=== PATIENT | male | born 1985 | race American Indian/Alaskan Native ===

== ENCOUNTER 2017-10-31 13:26 | Emergency (ER) | payer OTHER ==
[2017-10-31 13:35] VITALS: BP 159/91
[2017-10-31] MEDS ORDERED: MOTRIN PO ONE (14:37)
--- NOTE | 2017-10-31 17:22 | Emergency Department Report ---
ED Fall HPI - General Chief Complaint: Back Pain/Injury Stated Complaint: FALL Time Seen by Provider: 10/31/17 14:24 Source: patient Mode of arrival: Wheelchair - History of Present Illness Initial Comments: Patient is a 32-year-old black male who is complaining of pain after fall. Patient states he was in the store and the floor was wet and he fell. Patient fell on the right side. Patient is complaining of right-sided neck pain posterior right shoulder pain as well as pain in the arm. Patient states pain is 8 out of 10 in severity. Patient denies any loss of consciousness. - Related Data Previous Rx's Medication Instructions Recorded Last Taken Type Ibuprofen [Motrin] 800 mg PO Q8HR PRN #20 tablet 10/31/17 Unknown Rx methOCARBAMOL [Robaxin TAB] 500 mg PO Q6H PRN #15 tablet 10/31/17 Unknown Rx traMADol [Ultram] 50 mg PO Q6HR PRN #12 tablet 10/31/17 Unknown Rx Allergies Allergy/AdvReac Type Severity Reaction Status Date / Time No Known Allergies Allergy Unverified 10/31/17 13:35 ED Review of Systems ROS: Stated complaint: FALL Other details as noted in HPI Comment: All other systems reviewed and negative ED Past Medical Hx - Past Medical History Previous Medical History?: No - Surgical History Past Surgical History?: No - Social History Smoking Status: Never Smoker Substance Use Type: None - Medications Home Medications: Home Medications Medication Instructions Recorded Confirmed Last Taken Type Ibuprofen [Motrin] 800 mg PO Q8HR PRN #20 tablet 10/31/17 Unknown Rx methOCARBAMOL [Robaxin TAB] 500 mg PO Q6H PRN #15 tablet 10/31/17 Unknown Rx traMADol [Ultram] 50 mg PO Q6HR PRN #12 tablet 10/31/17 Unknown Rx ED Physical Exam - General Limitations: No Limitations General appearance: alert, in no apparent distress - Head Head exam: Present: atraumatic, normocephalic - Eye Eye exam: Present: normal appearance - ENT ENT exam: Present: mucous membranes moist - Neck Neck exam: Present: normal inspection - Respiratory Respiratory exam: Present: normal lung sounds bilaterally. Absent: respiratory distress - Cardiovascular Cardiovascular Exam: Present: regular rate, normal rhythm. Absent: systolic murmur, diastolic murmur, rubs, gallop - GI/Abdominal GI/Abdominal exam: Present: soft, normal bowel sounds - Rectal Rectal exam: Present: deferred - Extremities Exam Extremities exam: Present: normal inspection, other (he states he has pain in the right forearm posterior right shoulder as well as the right side of his neck. Patient also having some minor discomfort in the lower back.) - Back Exam Back exam: Present: normal inspection - Neurological Exam Neurological exam: Present: alert, oriented X3 - Psychiatric Psychiatric exam: Present: normal affect, normal mood - Skin Skin exam: Present: warm, dry, intact, normal color. Absent: rash ED Course Vital Signs 10/31/17 10/31/17 13:31 14:52 Temperature 99.0 F Pulse Rate 94 H Respiratory 16 18 Rate Blood Pressure 159/91 O2 Sat by Pulse 99 Oximetry ED Medical Decision Making - Radiology Data interpreted by me: X-rays of the right forearm and right shoulder C-spine and lumbar spine are within normal limits. Critical care attestation.: If time is entered above; I have spent that time in minutes in the direct care of this critically ill patient, excluding procedure time. ED Disposition Clinical Impression: Musculoskeletal pain Disposition: DC-01 TO HOME OR SELFCARE Is pt being admited?: No Does the pt Need Aspirin: No Condition: Stable Instructions: Musculoskeletal Pain (ED), RICE Therapy (ED) Referrals: JOS GIPSON MD [Staff Physician] - as needed
--- NOTE | 2017-10-31 17:41 | XRay Report ---
FINAL REPORT PROCEDURE: XR SHOULDER 2+V RT TECHNIQUE: Right shoulder radiographs including AP views in internal and external rotation and transscapular view. HISTORY: Fall injury. COMPARISON: No prior studies are available for comparison. FINDINGS: Fracture (s) and/or Dislocation(s): None . Joint space(s): Normal . Soft tissues: Normal . Bone mineralization: Normal . Foreign bodies: None . IMPRESSION: No radiographic evidence of acute abnormality.
--- NOTE | 2017-10-31 18:06 | XRay Report ---
FINAL REPORT PROCEDURE: XR FOREARM RT TECHNIQUE: RIGHT forearm radiographs, AP and lateral views. HISTORY: Fall injury. COMPARISON: No prior studies are available for comparison. FINDINGS: Fracture (s) and/or Dislocation(s): None . Joint space(s): Normal . Soft tissues: Normal . Bone mineralization: Normal . Foreign bodies: None . IMPRESSION: No radiographic evidence of displaced fracture.
--- NOTE | 2017-10-31 18:09 | XRay Report ---
FINAL REPORT PROCEDURE: XR SPINE CERVICAL 3+V TECHNIQUE: Cervical spine radiographs, AP, lateral, swimmer's and open-mouth odontoid views. HISTORY: Fall injury. COMPARISON: No prior studies are available for comparison. FINDINGS: Prevertebral soft tissues: Normal . Alignment: Normal . Vertebral body heights/Disk spaces: Normal . Fracture(s): None . Facets: Normal . Bone mineralization: Normal . IMPRESSION: No radiographic evidence of acute abnormality.
--- NOTE | 2017-10-31 18:13 | XRay Report ---
FINAL REPORT PROCEDURE: XR SPINE LUMBOSACRAL 2-3V TECHNIQUE: Lumbar spine radiographs, including AP, lateral, and lumbosacral spot views. HISTORY: Fall injury. COMPARISON: No prior studies are available for comparison. FINDINGS: Alignment: Normal. Vertebral body heights/Disk spaces: Normal. Fracture(s): None. Facets: Normal. Bone mineralization: Normal. IMPRESSION: No radiographic evidence of acute abnormality.
== END 2017-10-31 17:37 | disposition home or self-care (01) ==
LOC: ED 13:26
DX: M54.2 Cervicalgia (principal); M25.511 Pain in right shoulder; W01.0XXA Fall on same level from slipping, tripping and stumbling without subsequent striking against object, initial encounter; Y93.89 Activity, other specified; Y92.512 Supermarket, store or market as the place of occurrence of the external cause; Y99.8 Other external cause status
CPT/HCPCS: 72040; 72100; 99283

== ENCOUNTER 2018-04-24 15:52 | Inpatient (IN) | payer OTHER ==
[2018-04-24] MEDS ORDERED: NACL 0.9% 500 ML 500 ML IV ONE (16:04)
[2018-04-24 16:47] LABS: Basophils % (Auto) 0.8 % (0.0-1.8); Hematocrit 45.6 % (35.5-45.6); Hemoglobin 15.5 gm/dl (11.8-15.2); Lymphocytes # (Auto) 0.6 K/mm3 (1.2-5.4); Lymphocytes % (Auto) 16.5 % (13.4-35.0); Mean Corpuscular HGB Conc 34 % (32-34); Mean Corpuscular Volume 82 fl (84-94); Monocytes # (Auto) 0.4 K/mm3 (0.0-0.8); Monocytes % (Auto) 10.4 % (0.0-7.3); Platelet Count 114 K/mm3 (140-440); Red Blood Count 5.54 M/mm3 (3.65-5.03); Red Cell Distribution Width 12.4 % (13.2-15.2)
[2018-04-24] MEDS ORDERED: TYLENOL ONE (16:49)
[2018-04-24 17:00] LABS: INR 1.01 (0.87-1.13)
[2018-04-24 17:02] LABS: Alanine Aminotransferase 60 units/L (7-56); Albumin 4.1 g/dL (3.9-5); BUN/Creatinine Ratio 8; Blood Urea Nitrogen 11 mg/dL (9-20); Calcium 8.5 mg/dL (8.4-10.2); Hemolysis Index 2
[2018-04-24] MEDS ORDERED: ZOSYN/NS 4.5GM/100ML 4.5 GM/100 ML VIAL IV ONE (17:02)
[2018-04-24] MEDS ORDERED: NACL 0.9% 1000 ML 1,000 ML IV ONE ×3 (17:03→20:27)
[2018-04-24] MEDS ORDERED: ZOFRAN IV ONE ×2 (17:03→20:08)
--- NOTE | 2018-04-24 17:08 | Emergency Department Report ---
ED N/V/D HPI - General Chief complaint: Nausea/Vomiting/Diarrhea Stated complaint: CHEST PAIN/POSS VIRUS Time Seen by Provider: 04/24/18 17:02 Source: patient Mode of arrival: Ambulatory Limitations: No Limitations - History of Present Illness Initial comments: Patient is a 32-year-old male that presents emergency room with complaints of nausea vomiting and chest pain and gastric pain that started 7 days ago. Patient states has not held anything down for 7 days. She states 2 days ago started having diarrhea. Patient states the chest pain is intermittent and only happens when he is vomiting. She states the epigastric pain is only when he is vomiting. Patient states he feels like the pain starts in his epigastric region radiating up into his chest while vomiting. Patient states he is not having any chest pain or abdominal pain at this time. Patient denies blood in his vomitus and blood in his stool. Patient states he is a normal color liquid diarrhea. Patient denies mucous in his diarrhea. Patient states he is having a fever for 7 days. Patient states he is taking medications to breakdown but is not responding. She denies headache. Patient denies blurry vision. Patient denies dizziness. Patient states he feels weak for the last 3 days. . MD complaint: nausea, vomiting, diarrhea, abdominal pain, other -: Sudden Description of Vomiting: watery Description of Diarrhea: water Associated Abdominal Pain: Yes Location: epigastric Radiation: chest Pain Scale: 0 Quality: stabbing Consistency: constant Improves with: rest Worsens with: eating, vomiting Associated Symptoms: chest pain, fever/chills, loss of appetite, malaise, nausea/vomiting, weakness. denies: myalgias, cough, diaphoresis, headaches, rash, dysuria, shortness of breath, syncope - Related Data Previous Rx's Medication Instructions Recorded Last Taken Type Ibuprofen [Motrin] 800 mg PO Q8HR PRN #20 tablet 10/31/17 Unknown Rx methOCARBAMOL [Robaxin TAB] 500 mg PO Q6H PRN #15 tablet 10/31/17 Unknown Rx traMADol [Ultram] 50 mg PO Q6HR PRN #12 tablet 10/31/17 Unknown Rx Allergies Allergy/AdvReac Type Severity Reaction Status Date / Time No Known Allergies Allergy Verified 04/24/18 16:01 ED Review of Systems ROS: Stated complaint: CHEST PAIN/POSS VIRUS Other details as noted in HPI Constitutional: chills, fever, malaise, weakness Eyes: denies: eye pain, eye discharge, vision change ENT: denies: ear pain, throat pain Respiratory: denies: cough, shortness of breath, wheezing Cardiovascular: chest pain. denies: palpitations Endocrine: no symptoms reported Gastrointestinal: abdominal pain, nausea, vomiting, diarrhea Genitourinary: denies: urgency, dysuria Musculoskeletal: denies: back pain, joint swelling, arthralgia Skin: denies: rash, lesions Neurological: denies: headache, weakness, paresthesias Psychiatric: denies: anxiety, depression Hematological/Lymphatic: denies: easy bleeding, easy bruising ED Past Medical Hx - Past Medical History Previous Medical History?: No - Surgical History Past Surgical History?: No - Family History Family history: no significant - Social History Smoking Status: Never Smoker Substance Use Type: None - Medications Home Medications: Home Medications Medication Instructions Recorded Confirmed Last Taken Type Ibuprofen [Motrin] 800 mg PO Q8HR PRN #20 tablet 10/31/17 Unknown Rx methOCARBAMOL [Robaxin TAB] 500 mg PO Q6H PRN #15 tablet 10/31/17 Unknown Rx traMADol [Ultram] 50 mg PO Q6HR PRN #12 tablet 10/31/17 Unknown Rx ED Physical Exam - General Limitations: No Limitations General appearance: alert, in no apparent distress - Head Head exam: Present: atraumatic, normocephalic - Eye Eye exam: Present: normal appearance - ENT ENT exam: Present: mucous membranes dry - Neck Neck exam: Present: normal inspection - Respiratory Respiratory exam: Present: normal lung sounds bilaterally. Absent: respiratory distress - Cardiovascular Cardiovascular Exam: Present: regular rate, normal rhythm. Absent: systolic murmur, diastolic murmur, rubs, gallop - GI/Abdominal GI/Abdominal exam: Present: soft, normal bowel sounds. Absent: distended, tenderness, guarding, rebound - Rectal Rectal exam: Present: deferred - Extremities Exam Extremities exam: Present: normal inspection - Back Exam Back exam: Present: normal inspection - Neurological Exam Neurological exam: Present: alert, oriented X3 - Psychiatric Psychiatric exam: Present: normal affect, normal mood - Skin Skin exam: Present: warm, dry, intact, normal color. Absent: rash ED Course Vital Signs 04/24/18 04/24/18 04/24/18 16:01 17:00 18:37 Temperature 102.9 F H 102.5 F H Pulse Rate 128 H 112 H 105 H Respiratory 18 12 22 Rate Blood Pressure 158/92 Blood Pressure 130/93 131/90 [Left] O2 Sat by Pulse 96 98 97 Oximetry 04/24/18 04/24/18 04/24/18 19:13 20:52 22:12 Temperature 97.8 F Pulse Rate 106 H 91 H 89 Respiratory 16 16 18 Rate Blood Pressure Blood Pressure 139/86 131/79 137/75 [Left] O2 Sat by Pulse 98 97 97 Oximetry - Reevaluation(s) Reevaluation #1: Discussed all results with patient. Patient's fever finally decreased. Patient still complaining of headache. Patient still unable to tolerate by mouth challenge. Patient has had multiple dose of antibiotics and still having nausea and vomiting. 04/24/18 20:25 Patient to be admitted to the hospitalist service . patient agrees with plan of care and admission. 04/24/18 20:25 - Consultations Consultation #1: Hospitalist consult for admission. Hospitalist to admit patient and assume care of patient. 04/24/18 20:30 ED Medical Decision Making - Lab Data Result diagrams: 04/24/18 16:19 04/24/18 16:19 - EKG Data -: EKG Interpreted by Ms EKG shows normal: sinus rhythm, axis, intervals, QRS complexes, ST-T waves Rate: tachycardia - Radiology Data Radiology results: report reviewed Negative CT abdomen. - Medical Decision Making Patient is a 32-year-old male that presents emergency room with 7 days of nausea vomiting abdominal pain. Patient also complained of abdominal pain rating to his chest. Patient denied chest pain upon arrival. Patient states chest pains only with vomiting. Patient to be admitted to the hospitalist service for further resolution treatment for intractable nausea and vomiting in fever. Patient's findings consistent with gastroenteritis of viral origin. Patient failed by mouth challenge. Patient multiple doses of antipyretics and antiemetics. Patient's had 7 days of fever and his fever is difficult control with medications. Patient given multiple doses of Zofran and still continued to have nausea vomiting. Patient given multiple boluses. . - Differential Diagnosis gastroenteritis. Dehydration. Nausea/vomiting. Abdominal pain. CP Critical Care Time: Yes Critical care attestation.: If time is entered above; I have spent that time in minutes in the direct care of this critically ill patient, excluding procedure time. Critical Care Time: 45 minutes ED Disposition Clinical Impression: Dehydration, Gastroenteritis Abdominal pain Qualifiers: Abdominal location: epigastric Qualified Code(s): R10.13 - Epigastric pain Intractable nausea and vomiting Qualifiers: Vomiting type: unspecified Qualified Code(s): R11.2 - Nausea with vomiting, unspecified Fever Qualifiers: Fever type: unspecified Qualified Code(s): R50.9 - Fever, unspecified Chest pain Qualifiers: Chest pain type: unspecified Qualified Code(s): R07.9 - Chest pain, unspecified Disposition: DC-09 OP ADMIT IP TO THIS HOSP Is pt being admited?: Yes Does the pt Need Aspirin: No Condition: Critical Time of Disposition: 20:31
--- NOTE | 2018-04-24 17:24 | XRay Report ---
FINAL REPORT PROCEDURE: XR CHEST ROUTINE 2V TECHNIQUE: PA and lateral chest radiographs were obtained. CPT 92860 HISTORY: possible Sepsis COMPARISON: No prior studies are available for comparison. FINDINGS: Heart: Normal. Mediastinum/Vessels: Normal. Lungs/Pleural space: No infiltrate, effusion, or pneumothorax. Bony thorax: No acute osseous abnormality. Other: IMPRESSION: No pulmonary infiltrates are identified.
[2018-04-24] MEDS ORDERED: IBUPROFEN PO ONE (19:03)
--- NOTE | 2018-04-24 20:01 | Cat Scan Report ---
FINAL REPORT PROCEDURE: CT abdomen and pelvis without contrast. TECHNIQUE: Computerized axial tomography of the abdomen and pelvis was performed without intravenous contrast. This study is performed without intravascular contrast material and its sensitivity for ab dominal and pelvic pathology, including neoplasms, inflammation, abscess, free fluid, thrombosis, art erial dissection and infarction, is reduced compared with a contrast enhanced study. HISTORY: Epigastric abdominal pain, nausea and vomiting, fever. COMPARISON: No prior studies are available for comparison. FINDINGS: The lung bases are clear. There are no pleural effusions. The heart size is normal. The liver, pancre as and spleen are grossly normal. The gallbladder is present. There is no biliary dilatation. The adr enal glands are not enlarged. Both kidneys appear normal in size and configuration. The abdominal aor ta has a normal caliber. There is no retroperitoneal adenopathy. The unopacified gastrointestinal tra ct is unremarkable. A normal appendix is visible. The bladder, seminal vesicles and prostate appear n ormal. The regional skeleton appears intact. IMPRESSION: Normal unenhanced studies of the abdomen and pelvis.
[2018-04-25] MEDS: NACL 0.9% 1000 ML 1,000 ML IV SCH ×2 (06:02→21:56)
--- NOTE | 2018-04-25 07:39 | Progress Note ---
Assessment and Plan Assessment and plan: 32-year-old man who presents with CAD emergency room with nausea vomiting, chest pain and epigastric pain 7 days. He has been having diarrhea now for 2 days. Chest x-ray no acute findings CT abdomen and pelvis no acute findings Problems Fever Intractable nausea vomiting Chest pain Abdominal pain SIRS without organ dysfunction Plan obtain rapid flu and stool studies IVF fup blood cx -obtain HIV testing, risk factors are MSM dvt ppx early ambulation History Interval history: Review of systems Constitutional: had fever, tmax 102.5, no malaise, no joint pains CVS: No chest pain, no orthopnea, no dyspnea on exertion, no pedal edema GI: No abdominal pain, diarrhea is resolving, no vomiting, no constipation Respiratory: No shortness of breath, no wheezing, no coughing Hospitalist Physical - Physical exam Narrative exam: General.: Appears well, no distress, nontoxic HEENT: Moist mucous membranes, extraocular muscles intact, no lymphadenopathy Neck: supple Cardiac: S1-S2 heard Lungs: clear to auscultation bilaterally Abdomen: soft , nontender, nondistended, bowel sounds positive Extremities: no edema clubbing or cyanosis Skin: no rash or lesions Neurologic: no gross focal deficits Psych: calm, and cooperative - Constitutional Vitals: Temp Pulse Resp BP Pulse Ox 99.0 F 89 20 110/72 98 04/25/18 05:32 04/25/18 05:32 04/25/18 05:32 04/25/18 05:32 04/25/18 05:32 Results - Labs CBC & Chem 7: 04/24/18 16:19 04/24/18 16:19 Labs: Laboratory Last Values WBC 3.4 K/mm3 (4.5-11.0) L 04/24/18 16:19 RBC 5.54 M/mm3 (3.65-5.03) H 04/24/18 16:19 Hgb 15.5 gm/dl (11.8-15.2) H 04/24/18 16:19 Hct 45.6 % (35.5-45.6) 04/24/18 16:19 MCV 82 fl (84-94) L 04/24/18 16:19 MCH 28 pg (28-32) 04/24/18 16:19 MCHC 34 % (32-34) 04/24/18 16:19 RDW 12.4 % (13.2-15.2) L 04/24/18 16:19 Plt Count 114 K/mm3 (140-440) L 04/24/18 16:19 Lymph % (Auto) 16.5 % (13.4-35.0) 04/24/18 16:19 [place] % (Auto) 10.4 % (0.0-7.3) H 04/24/18 16:19 Eos % (Auto) 0.0 % (0.0-4.3) 04/24/18 16:19 Baso % (Auto) 0.8 % (0.0-1.8) 04/24/18 16:19 Lymph # 0.6 K/mm3 (1.2-5.4) L 04/24/18 16:19 [place] # 0.4 K/mm3 (0.0-0.8) 04/24/18 16:19 Eos # 0.0 K/mm3 (0.0-0.4) 04/24/18 16:19 Baso # 0.0 K/mm3 (0.0-0.1) 04/24/18 16:19 Seg Neutrophils % 72.3 % (40.0-70.0) H 04/24/18 16:19 Seg Neutrophils # 2.4 K/mm3 (1.8-7.7) 04/24/18 16:19 PT 13.7 Sec. (12.2-14.9) 04/24/18 16:19 INR 1.01 (0.87-1.13) 04/24/18 16:19 VBG pH 7.417 (7.320-7.420) 04/24/18 16:19 Sodium 133 mmol/L (137-145) L 04/24/18 16:19 Potassium 3.8 mmol/L (3.6-5.0) 04/24/18 16:19 Chloride 99.3 mmol/L (98-107) 04/24/18 16:19 Carbon Dioxide 20 mmol/L (22-30) L 04/24/18 16:19 Anion Gap 18 mmol/L 04/24/18 16:19 BUN 11 mg/dL (9-20) 04/24/18 16:19 Creatinine 1.4 mg/dL (0.8-1.5) 04/24/18 16:19 Estimated GFR > 60 ml/min 04/24/18 16:19 BUN/Creatinine Ratio 8 % 04/24/18 16:19 Glucose 125 mg/dL (75-100) H 04/24/18 16:19 Lactic Acid 1.20 mmol/L (0.7-2.0) 04/24/18 19:08 Calcium 8.5 mg/dL (8.4-10.2) 04/24/18 16:19 Total Bilirubin 0.40 mg/dL (0.1-1.2) 04/24/18 16:19 AST 51 units/L (5-40) H 04/24/18 16:19 ALT 60 units/L (7-56) H 04/24/18 16:19 Alkaline Phosphatase 51 units/L (35-129) 04/24/18 16:19 Total Protein 7.3 g/dL (6.3-8.2) 04/24/18 16:19 Albumin 4.1 g/dL (3.9-5) 04/24/18 16:19 Albumin/Globulin Ratio 1.3 % 04/24/18 16:19 Lipase 73 units/L (13-60) H 04/24/18 22:37
[2018-04-25] MEDS: ZOFRAN IV PRN ×4 (09:21→21:57)
[2018-04-25] MEDS: HEPARIN SUB-Q SCH ×2 (09:21→21:57)
[2018-04-25] MEDS: TYLENOL PO PRN ×3 (09:33→21:58)
--- NOTE | 2018-04-25 09:55 | History and Physical Report ---
CHIEF COMPLAINT: Nausea, vomiting, and diarrhea. HISTORY OF PRESENT ILLNESS: The patient is a 32-year-old male who said he has been having nausea, vomiting, and diarrhea with some epigastric abdominal pain going on for about 1 week. The patient stated the symptoms started with nausea, vomiting, and pain going on for about 7 days and then 2 days prior to presentation, the patient started having diarrhea. The patient denies history of shortness of breath and stated that he has also been having fever going on for about 1 week. There is no history of headache, no history of dizziness, and no history of cough. PAST MEDICAL HISTORY: Unremarkable. PAST SURGICAL HISTORY: Unremarkable. FAMILY HISTORY: Noncontributory. SOCIAL HISTORY: The patient does not smoke, does not drink alcohol, and does not use illicit drugs. MEDICATIONS: The patient is on Motrin 800 mg every 8 hours as needed for pain and Robaxin 500 mg every 6 hours as needed for muscle cramps, also the patient used to be on tramadol 50 mg every 6 hours as needed for pain. ALLERGIES: There are no known drug allergies. REVIEW OF SYSTEMS: CONSTITUTIONAL: There is fever. No chills, no diaphoresis. HEENT: There is no headache or sore throat. CARDIOVASCULAR SYSTEM: There is chest pain, but no orthopnea. RESPIRATORY SYSTEM: There is no shortness of breath or cough. GASTROINTESTINAL SYSTEM: Nausea, vomiting, abdominal pain, and diarrhea present. There is no constipation. NEUROLOGICAL SYSTEM: There is no numbness, no dizziness, no altered mental status. MUSCULOSKELETAL SYSTEM: There is no joint pain or swelling. DERMATOLOGICAL SYSTEM: There is no skin rash or itching. GENITOURINARY SYSTEM: There is no dysuria, hematuria, or flank pain. Rest of system review is normal. PHYSICAL EXAMINATION: GENERAL: At the time of exam, the patient was found to be alert and oriented x 3 and not in acute distress. VITAL SIGNS: At the initial time of presentation showed temperature of 102.9 degree Fahrenheit, pulse of 128, respirations 18, blood pressure 158/92, O2 sat of 96% on room air. HEENT: Shows pupils to be equal, round, reactive to light and accommodating. Extraocular muscles are intact. NECK: Neck is supple with no JVD or carotid bruits. CARDIOVASCULAR SYSTEM: Show normal first and second heart sounds with no gallops or murmurs. RESPIRATORY SYSTEM: Showed good air entry on both sides of the lung with no abnormal breath sounds. GASTROINTESTINAL SYSTEM: Show abdomen to be full, soft, nontender with no organomegaly or rigidity. NEUROLOGIC: No focal deficit. MUSCULOSKELETAL SYSTEM: Shows no joint swelling or tenderness. DERMATOLOGICAL SYSTEM: Show no skin rash. GENITOURINARY SYSTEM: Show no costovertebral angle tenderness. PERTINENT LABORATORY AND IMAGING STUDIES: The patient had a CT of the abdomen and pelvis without contrast done that was unremarkable. Also, the patient had chest x-ray done that shows no pulmonary infiltrate. The patient's lab results show CBC with low white count of 3400, elevated hemoglobin of 15.5, normal hematocrit with CBC differential showing elevated monocyte count of 10,400 with CBC differential showing elevated segmented neutrophil count of 72.3%. The patient's chemistry showed low sodium of 133, low CO2 of 20, and liver transaminases show high AST of 51 with high ALT of 60, and elevated lipase level of 73. The patient's urinalysis is still pending and influenza antigen A and B test is still pending. DIAGNOSIS: Acute gastroenteritis. PLAN OF ACTION: 1. The patient will be placed on observation in the medical/surgical [place]. 2. The patient will be on IV normal saline running at about 125 mL an hour. 3. The patient will be on p.r.n. medications like Tylenol 650 mg by mouth every 4 hours for fever and headache and will be on IV Zofran 4 mg every 8 hours for nausea and vomiting. 4. The patient will have a stat cardiac enzymes checked for troponin, total CK, and CK-MB because of complain of epigastric pain extending to the chest area. 5. The patient's diet will be regular diet. JOB# [id number] OCN/NTS
[2018-04-25 15:03] LABS: Bilirubin,Urine NEG (Negative); Blood,Urine NEG (Negative); Color,Urine Yellow (Yellow); Mucus,Urine FEW /HPF; Protein,Urine <15 mg/dL mg/dL (Negative)
[2018-04-25 15:29] LABS: Creatine Kinase MB 4.6 ng/mL (0.0-4.0)
[2018-04-25] MEDS: IBUPROFEN PO PRN (19:20)
[2018-04-25] MEDS ORDERED: MORPHINE IV ONE ×2 (21:03→22:00)
[2018-04-26] MEDS: ZOFRAN IV PRN ×2 (02:27→09:11)
[2018-04-26] MEDS: IBUPROFEN PO PRN ×2 (02:27→09:59)
[2018-04-26] MEDS: HEPARIN SUB-Q SCH (09:58)
--- NOTE | 2018-04-26 11:28 | Consultation ---
History of Present Illness - Reason for Consult Consult date: 04/26/18 HIV Requesting physician: PRUDENCE DORAN - History of Present Illness This patient is a 32-year-old male with no significant past medical history , that presents to the ED on 04/24/17 with complaints of nausea, vomiting and gastric pain that started 7 days ago. Patient further states that he has been having diarrhea, that is liquid in consistency for the past 2 days. He also has intermittent chest and epigastric pain while vomiting, but symptoms do not occur simultaneously. On admission WBC 3.4, Creatinine 1.4, CK 1752, Lactic acid 1.20, AST 51, ALT 60, Temperature 102.9,, HR 128, BP 158/92. U/A is not consistent with UTI, HIV P24 Antigen was reactive, Chest xray showed no inf iltrates, Abdomen and pelvis CT showed normal unenhanced studies. Patient states that he engages in MSM behavior, last encounter early March of this year. He denies tobacco or illegal drug use. States that he drinks alcohol occasionally. Review of Systems: General: +fevers, chills, now resolved HEENT: no new visual disturbance Respiratory: No cough, sputum, hemoptysis or shortness of breath Cardiovascular: No chest pain, syncope Gastrointestinal: No nausea, vomiting. + diarrhea, now resolved Genitourinary: No dysuria or hematuria Musculoskeletal: No new or worsening neck pain or back pain Neurologic: No headaches, seizures Hematologic: No easy bruising or bleeding Endocrine: No night sweats or acute weight loss Skin: negative for rash, jaundice Psychiatric: No suicidal or homicidal ideation Medications and Allergies Allergies Allergy/AdvReac Type Severity Reaction Status Date / Time No Known Allergies Allergy Verified 04/24/18 16:01 Home Medications Medication Instructions Recorded Confirmed Last Taken Type Ibuprofen [Motrin 800 MG tab] 800 mg PO Q8HR PRN #20 tablet 10/31/17 Unknown Rx methOCARBAMOL [Robaxin TAB] 500 mg PO Q6H PRN #15 tablet 10/31/17 Unknown Rx Active Meds: Active Medications Acetaminophen (Tylenol) 650 mg PO Q4H PRN PRN Reason: Fever >101 Last Admin: 04/25/18 21:58 Dose: 650 mg Documented by: Heparin Sodium (Porcine) (Heparin) 5,000 unit SUB-Q Q12HR [facility] Last Admin: 04/26/18 09:58 Dose: 5,000 unit Documented by: Sodium Chloride (Nacl 0.9% 1000 Ml) 1,000 mls @ 125 mls/hr IV DIRECT EZ Last Admin: 04/25/18 21:56 Dose: 125 mls/hr Documented by: Ibuprofen (Motrin) 800 mg PO Q8H PRN PRN Reason: Pain, Mild (1-3) Last Admin: 04/26/18 09:59 Dose: 800 mg Documented by: Ondansetron HCl (Zofran) 6 mg IV Q4H PRN PRN Reason: Nausea And Vomiting Last Admin: 04/26/18 09:11 Dose: 6 mg Documented by: Physical Examination - Physical Exam Narrative exam: Constitutional: Alert, cooperative. No acute distress Head, Ears, Nose: Normocephalic, atraumatic. External ears, nose normal Eyes: Conjunctivae/corneas clear. No icterus. No ptosis. Neck: Supple, no meningeal signs Oral: dentition good, no thrush Cardiovascular: S1, S2 normal. Respiratory: Good air entry, clear to auscultation bilaterally GI: Soft, non-tender; bowel sounds normal. No peritoneal signs Musculoskeletal: No pedal edema, no cyanosis. Skin: No rash or abscess. Hem/Lymphatic: No palpable cervical or supraclavicular nodes. No lymphangitis Psych: Mood ok. Affect normal Neurological: Awake, alert, oriented. - Constitutional Vitals: Vital Signs Temp Pulse Resp BP Pulse Ox 97.9 F 82 20 117/77 96 04/26/18 05:26 04/26/18 05:26 04/26/18 05:26 04/26/18 05:26 04/26/18 05:26 Temperature -Last 24 Hours Temperature 97.9 F Temperature 98.0 F Temperature 100.6 F Temperature 99.7 F Results - Labs CBC & Chem 7: 04/24/18 16:19 04/24/18 16:19 Labs: Abnormal lab results 04/25/18 Range/Units 14:47 Total Creatine Kinase 1752 H (55-170) units/L CK-MB (CK-2) 4.6 H (0.0-4.0) ng/mL Assessment and Plan Cultures: 04/25/2018 Urine: no growth to date 04/24/2018 Blood: no growth to date A/P: 32-year-old male with no significant past medical history , that presents to the ED on 04/24/17 with complaints of nausea, vomiting and gastric pain that started 7 days ago. Patient further states that he has been having diarrhea, that is liquid in consistency for the past 2 days, admitted with. 1.Fevers: etiology unclear. Chest xray shows no consolidation. Blood cultures and urine cultures show no growth to date. U/A in not consistent with UTI. Denies recent diarrhea. Possible viral etiology, +/-HIV, +/- mononucleosis, +/- influenza.. HIV 1 &2 antibody rapid was nonreactive, however HIV P24 antigen is reactive. Can be false positive. However he admits to recent MSM behavior. Will order HIV 4th generation antigen/antibody for confirmation, CD4 count, Viral load and HIV genotype stat. Plan -Order HIV 4th generation antigen/antibody -CD4, Viral load and HIV genotype -Rapid flu -stool cx, ova & parasite, c-diff and stool wbc ordered -if discharged will follow up with ID clinic 05-13-18 for results of tests -discussed plan with patient and card given d/w Dr. Jorge Avitia, [facility] M: [phone] O:[phone]
[2018-04-26 12:39] VITALS: BP 131/80
--- NOTE | 2018-04-26 13:13 | Progress Note ---
Assessment and Plan Assessment and plan: 32-year-old man who presents with CAD emergency room with nausea vomiting, chest pain and epigastric pain 7 days. He has been having diarrhea now for 2 days. Chest x-ray no acute findings CT abdomen and pelvis no acute findings Problems Fever Intractable nausea vomiting Chest pain Abdominal pain SIRS without organ dysfunction HIV p24 ag positive Plan obtain rapid flu and stool studies IVF fup blood cx -HIV p24 ag positive, ID consult, obtain Genotype, confirmation, Viral load, risk factors are MSM dvt ppx early ambulation History Interval history: Review of systems Constitutional: had fever, tmax 102.5, no malaise, no joint pains CVS: No chest pain, no orthopnea, no dyspnea on exertion, no pedal edema GI: No abdominal pain, diarrhea is resolving, no vomiting, no constipation Respiratory: No shortness of breath, no wheezing, no coughing Hospitalist Physical - Physical exam Narrative exam: General.: Appears well, no distress, nontoxic HEENT: Moist mucous membranes, extraocular muscles intact, no lymphadenopathy Neck: supple Cardiac: S1-S2 heard Lungs: clear to auscultation bilaterally Abdomen: soft , nontender, nondistended, bowel sounds positive Extremities: no edema clubbing or cyanosis Skin: no rash or lesions Neurologic: no gross focal deficits Psych: calm, and cooperative - Constitutional Vitals: Temp Pulse Resp BP Pulse Ox 98.7 F 83 18 131/80 95 04/26/18 11:32 04/26/18 11:32 04/26/18 11:32 04/26/18 11:32 04/26/18 11:32 Results - Labs CBC & Chem 7: 04/24/18 16:19 04/24/18 16:19 Labs: Laboratory Last Values WBC 3.4 K/mm3 (4.5-11.0) L 04/24/18 16:19 RBC 5.54 M/mm3 (3.65-5.03) H 04/24/18 16:19 Hgb 15.5 gm/dl (11.8-15.2) H 04/24/18 16:19 Hct 45.6 % (35.5-45.6) 04/24/18 16:19 MCV 82 fl (84-94) L 04/24/18 16:19 MCH 28 pg (28-32) 04/24/18 16:19 MCHC 34 % (32-34) 04/24/18 16:19 RDW 12.4 % (13.2-15.2) L 04/24/18 16:19 Plt Count 114 K/mm3 (140-440) L 04/24/18 16:19 Lymph % (Auto) 16.5 % (13.4-35.0) 04/24/18 16:19 Blanco % (Auto) 10.4 % (0.0-7.3) H 04/24/18 16:19 Eos % (Auto) 0.0 % (0.0-4.3) 04/24/18 16:19 Baso % (Auto) 0.8 % (0.0-1.8) 04/24/18 16:19 Lymph # 0.6 K/mm3 (1.2-5.4) L 04/24/18 16:19 Blanco # 0.4 K/mm3 (0.0-0.8) 04/24/18 16:19 Eos # 0.0 K/mm3 (0.0-0.4) 04/24/18 16:19 Baso # 0.0 K/mm3 (0.0-0.1) 04/24/18 16:19 Seg Neutrophils % 72.3 % (40.0-70.0) H 04/24/18 16:19 Seg Neutrophils # 2.4 K/mm3 (1.8-7.7) 04/24/18 16:19 PT 13.7 Sec. (12.2-14.9) 04/24/18 16:19 INR 1.01 (0.87-1.13) 04/24/18 16:19 VBG pH 7.417 (7.320-7.420) 04/24/18 16:19 Sodium 133 mmol/L (137-145) L 04/24/18 16:19 Potassium 3.8 mmol/L (3.6-5.0) 04/24/18 16:19 Chloride 99.3 mmol/L (98-107) 04/24/18 16:19 Carbon Dioxide 20 mmol/L (22-30) L 04/24/18 16:19 Anion Gap 18 mmol/L 04/24/18 16:19 BUN 11 mg/dL (9-20) 04/24/18 16:19 Creatinine 1.4 mg/dL (0.8-1.5) 04/24/18 16:19 Estimated GFR > 60 ml/min 04/24/18 16:19 BUN/Creatinine Ratio 8 % 04/24/18 16:19 Glucose 125 mg/dL (75-100) H 04/24/18 16:19 Lactic Acid 1.20 mmol/L (0.7-2.0) 04/24/18 19:08 Calcium 8.5 mg/dL (8.4-10.2) 04/24/18 16:19 Total Bilirubin 0.40 mg/dL (0.1-1.2) 04/24/18 16:19 AST 51 units/L (5-40) H 04/24/18 16:19 ALT 60 units/L (7-56) H 04/24/18 16:19 Alkaline Phosphatase 51 units/L (35-129) 04/24/18 16:19 Total Creatine Kinase 1752 units/L (55-170) H 04/25/18 14:47 CK-MB (CK-2) 4.6 ng/mL (0.0-4.0) H 04/25/18 14:47 CK-MB (CK-2) Rel Index 0.2 (0-4) 04/25/18 14:47 Troponin T < 0.010 ng/mL (0.00-0.029) 04/25/18 14:47 Total Protein 7.3 g/dL (6.3-8.2) 04/24/18 16:19 Albumin 4.1 g/dL (3.9-5) 04/24/18 16:19 Albumin/Globulin Ratio 1.3 % 04/24/18 16:19 Lipase 73 units/L (13-60) H 04/24/18 22:37 Urine Color Yellow (Yellow) 04/25/18 14:55 Urine Turbidity Clear (Clear) 04/25/18 14:55 Urine pH 5.0 (5.0-7.0) 04/25/18 14:55 Ur Specific Jones 1.018 (1.003-1.030) 04/25/18 14:55 Urine Protein <15 mg/dl mg/dL (Negative) 04/25/18 14:55 Urine Glucose (UA) Neg mg/dL (Negative) 04/25/18 14:55 Urine Ketones Neg mg/dL (Negative) 04/25/18 14:55 Urine Blood Neg (Negative) 04/25/18 14:55 Urine Nitrite Neg (Negative) 04/25/18 14:55 Urine Bilirubin Neg (Negative) 04/25/18 14:55 Urine Urobilinogen 4.0 mg/dL (<2.0) 04/25/18 14:55 Ur Leukocyte Esterase Neg (Negative) 04/25/18 14:55 Urine WBC (Auto) 2.0 /HPF (0.0-6.0) 04/25/18 14:55 Urine RBC (Auto) 1.0 /HPF (0.0-6.0) 04/25/18 14:55 Urine Mucus Few /HPF 04/25/18 14:55 HIV 1&2 Antibody Rapid Non react (Non React) 04/26/18 00:23 HIV P24 Antigen React (Non React) 04/26/18 00:23
--- NOTE | 2018-04-26 14:11 | Discharge Summary ---
Providers - Providers Date of Admission: 04/24/18 22:08 Attending physician: PRUDENCE DORAN MD 04/26/18 10:58 Consult to Physician [CONS] Routine Comment: Consulting Provider: PADMINI HOLLAND Physician Instructions: Reason For Exam: HIV p24 ag positive, new Primary care physician: DENNIS ADRIAN Hospitalization Condition: Good Pertinent studies: Chest x-ray no acute findings CT abdomen and pelvis no acute findings Hospital course: 32-year-old man who presents with CAD emergency room with nausea vomiting, chest pain and epigastric pain 7 days. He had diarrhea for 2 days. -he was diagnosed with acute viral gastroenteritis - he received IVF and anti- emetics, and he improved - chest pain was likely due to intractable vomiting, resolved with anti emetics - HIV p24 ag was pos, likely false positive, confirmatory test ordered, he will fup in ID clinic for his results Problems Fever Acute viral gastroenteritis dehydration Intractable nausea vomiting Chest pain- due to oesophageal irritation from vomiting Abdominal pain SIRS without organ dysfunction HIV p24 ag positive Disposition: TO HOME OR SELFCARE Time spent for discharge: 33 mins Core Measure Documentation - Palliative Care Palliative Care/ Comfort Measures: Not Applicable - Core Measures Any of the following diagnoses?: none Exam - Constitutional Vitals: Temp Pulse Resp BP Pulse Ox 98.7 F 83 18 131/80 95 04/26/18 11:32 04/26/18 11:32 04/26/18 11:32 04/26/18 11:32 04/26/18 11:32 General appearance: Present: no acute distress, well-nourished - EENT Eyes: Present: PERRL ENT: hearing intact, clear oral mucosa - Neck Neck: Present: supple, normal ROM - Respiratory Respiratory effort: normal Respiratory: bilateral: CTA - Cardiovascular Heart Sounds: Present: S1 & S2. Absent: rub, click - Extremities Extremities: pulses symmetrical, No edema Peripheral Pulses: within normal limits - Abdominal General gastrointestinal: Present: soft, non-tender, non-distended, normal bowel sounds Male genitourinary: Present: normal - Integumentary Integumentary: Present: clear, warm, dry - Musculoskeletal Musculoskeletal: gait normal, strength equal bilaterally - Psychiatric Psychiatric: appropriate mood/affect, intact judgment & insight - Neurologic Neurologic: CNII-XII intact, moves all extremities Plan
[2018-04-28 20:54] LABS: HIV-1 RNA QN PCR 6.75 Log cps/mL
[2018-04-29 16:05] LABS: CD4/CD8 Ratio 1.04 (0.86-5.00)
== END 2018-04-26 17:00 | disposition home or self-care (01) | DRG 392 ==
LOC: ED 15:52 → 3A 22:08
PROVIDERS: ADMIT Internal Medicine; ATTEND Internal Medicine
DX: A08.39 Other viral enteritis (principal); R65.10 Systemic inflammatory response syndrome (SIRS) of non-infectious origin without acute organ dysfunction; E86.0 Dehydration; K20.9 Esophagitis, unspecified; I25.10 Atherosclerotic heart disease of native coronary artery without angina pectoris; Z72.89 Other problems related to lifestyle; Z79.899 Other long term (current) drug therapy
CPT/HCPCS: 36415; 71046; 74176; 80053; 81001; 82024; 82140; 82550; 82553; 82805; 83690; 84484; 85025; 85610; 87040; 87086; 87536; 87806; 87901; 93005; 93010; G0378; J1644; J2270; J2405; J2543; J7030; J7040

== ENCOUNTER 2018-04-26 19:59 | Emergency (ER) | payer SELFPAY ==
[2018-04-26] MEDS ORDERED: ZOFRAN ODT PO ONE (20:38)
[2018-04-26] MEDS ORDERED: ZOFRAN ODT ONE (20:39)
[2018-04-27] MEDS ORDERED: NACL 0.9% 1000 ML 1,000 ML IV ONE (06:16)
[2018-04-27] MEDS ORDERED: LEVAQUIN PO ONE (06:20)
[2018-04-27] MEDS ORDERED: TYLENOL PO ONE (06:23)
--- NOTE | 2018-04-27 06:30 | Emergency Department Report ---
ED Abdominal Pain HPI - General Chief Complaint: Chest Pain Stated Complaint: EMESIS/CP/DIZZY Time Seen by Provider: 04/27/18 06:09 Source: patient Mode of arrival: Ambulatory Limitations: No Limitations - History of Present Illness Initial Comments: Mr. Flynn is a fairly healthy 31-year-old male who has been ill for the last week. He was recently discharged yesterday for fever nausea vomiting diarrhea. He felt better after supportive therapy. After a short hospital observation stay, he asked to go home. Once he went back home, the symptoms returned. He is able to tolerate water. However he still has nausea and diarrhea. He also has chest pain associated with vomiting. According to electronic medical record, diagnosis acute gastroenteritis, CT abdomen and pelvis without acute process. He has generalized nondescript abdominal discomfort. He is concerned that something in his room is making him sick. Severity scale (0 -10): 8 - Related Data Previous Rx's Medication Instructions Recorded Last Taken Type Ibuprofen [Motrin 800 MG tab] 800 mg PO Q8HR PRN #20 tablet 10/31/17 Unknown Rx methOCARBAMOL [Robaxin TAB] 500 mg PO Q6H PRN #15 tablet 10/31/17 Unknown Rx Ciprofloxacin HCl [Ciprofloxacin 500 mg PO BID 3 Days #6 tablet 04/27/18 Unknown Rx TAB] Promethazine [Phenergan TAB] 25 mg PO Q6HR PRN #20 tab 04/27/18 Unknown Rx Allergies Allergy/AdvReac Type Severity Reaction Status Date / Time No Known Allergies Allergy Verified 04/24/18 16:01 ED Review of Systems ROS: Stated complaint: EMESIS/CP/DIZZY Other details as noted in HPI Comment: All other systems reviewed and negative Constitutional: fever, malaise Gastrointestinal: abdominal pain, nausea, vomiting, diarrhea ED Past Medical Hx - Past Medical History Previous Medical History?: No - Surgical History Past Surgical History?: No - Social History Smoking Status: Never Smoker Substance Use Type: Alcohol - Medications Home Medications: Home Medications Medication Instructions Recorded Confirmed Last Taken Type Ibuprofen [Motrin 800 MG tab] 800 mg PO Q8HR PRN #20 tablet 10/31/17 Unknown Rx methOCARBAMOL [Robaxin TAB] 500 mg PO Q6H PRN #15 tablet 10/31/17 Unknown Rx Ciprofloxacin HCl [Ciprofloxacin 500 mg PO BID 3 Days #6 tablet 04/27/18 Unknown Rx TAB] Promethazine [Phenergan TAB] 25 mg PO Q6HR PRN #20 tab 04/27/18 Unknown Rx ED Physical Exam - General Limitations: No Limitations General appearance: alert, in no apparent distress, other (drinking water from water bottle appears nontoxic) - Head Head exam: Present: atraumatic, normocephalic - Eye Eye exam: Present: normal appearance - ENT ENT exam: Present: mucous membranes moist - Neck Neck exam: Present: normal inspection, full ROM. Absent: tenderness, meningismus - Respiratory Respiratory exam: Present: normal lung sounds bilaterally. Absent: respiratory distress, wheezes, rales, rhonchi - Cardiovascular Cardiovascular Exam: Present: regular rate, normal rhythm, normal heart sounds. Absent: systolic murmur, diastolic murmur, rubs, gallop - GI/Abdominal GI/Abdominal exam: Present: soft, normal bowel sounds. Absent: distended, tenderness, guarding, rebound - Rectal Rectal exam: Present: deferred - Extremities Exam Extremities exam: Present: normal inspection - Back Exam Back exam: Present: normal inspection - Neurological Exam Neurological exam: Present: alert, oriented X3 - Psychiatric Psychiatric exam: Present: normal affect, normal mood - Skin Skin exam: Present: warm, dry, intact, normal color. Absent: rash ED Course Vital Signs 04/26/18 04/27/18 04/27/18 20:24 03:17 03:33 Temperature 100.0 F H 100.1 F H Pulse Rate 110 H 108 H Respiratory 18 20 18 Rate Blood Pressure 146/90 Blood Pressure 147/87 [Left] O2 Sat by Pulse 96 98 98 Oximetry 04/27/18 04/27/18 04/27/18 06:46 06:48 06:49 Temperature 99.6 F Pulse Rate 94 H Respiratory 20 Rate Blood Pressure 132/90 Blood Pressure [Left] O2 Sat by Pulse 97 96 100 Oximetry 04/27/18 04/27/18 04/27/18 06:50 06:52 06:54 Temperature Pulse Rate Respiratory Rate Blood Pressure 132/90 132/90 132/90 Blood Pressure [Left] O2 Sat by Pulse 97 96 96 Oximetry 04/27/18 04/27/18 04/27/18 06:56 06:58 07:00 Temperature Pulse Rate Respiratory Rate Blood Pressure 132/90 132/90 132/90 Blood Pressure [Left] O2 Sat by Pulse 96 95 98 Oximetry 04/27/18 04/27/18 04/27/18 07:02 07:04 07:06 Temperature Pulse Rate Respiratory Rate Blood Pressure 149/85 149/85 149/85 Blood Pressure [Left] O2 Sat by Pulse 97 95 96 Oximetry 04/27/18 04/27/18 04/27/18 07:08 07:10 07:12 Temperature Pulse Rate Respiratory Rate Blood Pressure 149/85 149/85 149/85 Blood Pressure [Left] O2 Sat by Pulse 92 94 96 Oximetry 04/27/18 04/27/18 04/27/18 07:14 07:16 07:18 Temperature Pulse Rate Respiratory Rate Blood Pressure 149/85 149/85 149/85 Blood Pressure [Left] O2 Sat by Pulse 98 95 96 Oximetry 04/27/18 04/27/18 04/27/18 07:20 07:22 07:24 Temperature Pulse Rate Respiratory Rate Blood Pressure 149/85 149/85 149/85 Blood Pressure [Left] O2 Sat by Pulse 99 95 98 Oximetry 04/27/18 04/27/18 07:26 07:28 Temperature Pulse Rate Respiratory Rate Blood Pressure 149/85 149/85 Blood Pressure [Left] O2 Sat by Pulse 98 99 Oximetry ED Medical Decision Making - Lab Data Result diagrams: 04/27/18 06:42 04/27/18 06:42 Laboratory Last Values WBC 2.4 K/mm3 (4.5-11.0) L 04/27/18 06:42 RBC 4.90 M/mm3 (3.65-5.03) 04/27/18 06:42 Hgb 13.5 gm/dl (11.8-15.2) 04/27/18 06:42 Hct 40.5 % (35.5-45.6) 04/27/18 06:42 MCV 83 fl (84-94) L 04/27/18 06:42 MCH 28 pg (28-32) 04/27/18 06:42 MCHC 33 % (32-34) 04/27/18 06:42 RDW 12.5 % (13.2-15.2) L 04/27/18 06:42 Plt Count 99 K/mm3 (140-440) L 04/27/18 06:42 Sodium 136 mmol/L (137-145) L 04/27/18 06:42 Potassium 5.2 mmol/L (3.6-5.0) H D 04/27/18 06:42 Chloride 101.8 mmol/L (98-107) 04/27/18 06:42 Carbon Dioxide 19 mmol/L (22-30) L 04/27/18 06:42 Anion Gap 20 mmol/L 04/27/18 06:42 BUN 9 mg/dL (9-20) 04/27/18 06:42 Creatinine 1.0 mg/dL (0.8-1.5) 04/27/18 06:42 Estimated GFR > 60 ml/min 04/27/18 06:42 BUN/Creatinine Ratio 9 % 04/27/18 06:42 Glucose 102 mg/dL (75-100) H 04/27/18 06:42 Calcium 8.0 mg/dL (8.4-10.2) L 04/27/18 06:42 Total Bilirubin 0.80 mg/dL (0.1-1.2) 04/27/18 06:42 Direct Bilirubin < 0.2 mg/dL (0-0.2) 04/27/18 06:42 Indirect Bilirubin 0.6 mg/dL 04/27/18 06:42 AST 90 units/L (5-40) H 04/27/18 06:42 ALT 61 units/L (7-56) H 04/27/18 06:42 Alkaline Phosphatase 43 units/L (35-129) 04/27/18 06:42 Total Protein 6.7 g/dL (6.3-8.2) 04/27/18 06:42 Albumin 3.6 g/dL (3.9-5) L 04/27/18 06:42 Albumin/Globulin Ratio 1.2 % 04/27/18 06:42 Lipase 93 units/L (13-60) H 04/27/18 06:42 Laboratory Results - last 24 hr 04/27/18 04/27/18 06:42 06:42 WBC 2.4 L RBC 4.90 Hgb 13.5 Hct 40.5 MCV 83 L MCH 28 MCHC 33 RDW 12.5 L Plt Count 99 L Sodium 136 L Potassium 5.2 H D Chloride 101.8 Carbon Dioxide 19 L Anion Gap 20 BUN 9 Creatinine 1.0 Estimated GFR > 60 BUN/Creatinine Ratio 9 Glucose 102 H Calcium 8.0 L Total Bilirubin 0.80 Direct Bilirubin < 0.2 Indirect Bilirubin 0.6 AST 90 H ALT 61 H Alkaline Phosphatase 43 Total Protein 6.7 Albumin 3.6 L Albumin/Globulin Ratio 1.2 Lipase 93 H Vital Signs - 24 hr 04/26/18 04/27/18 04/27/18 20:24 03:17 03:33 Temperature 100.0 F H 100.1 F H Pulse Rate 110 H 108 H Respiratory 18 20 18 Rate Blood Pressure 146/90 Blood Pressure 147/87 [Left] O2 Sat by Pulse 96 98 98 Oximetry 04/27/18 04/27/18 04/27/18 06:46 06:48 06:49 Temperature 99.6 F Pulse Rate 94 H Respiratory 20 Rate Blood Pressure 132/90 Blood Pressure [Left] O2 Sat by Pulse 97 96 100 Oximetry 04/27/18 04/27/18 04/27/18 06:50 06:52 06:54 Temperature Pulse Rate Respiratory Rate Blood Pressure 132/90 132/90 132/90 Blood Pressure [Left] O2 Sat by Pulse 97 96 96 Oximetry 04/27/18 04/27/18 04/27/18 06:56 06:58 07:00 Temperature Pulse Rate Respiratory Rate Blood Pressure 132/90 132/90 132/90 Blood Pressure [Left] O2 Sat by Pulse 96 95 98 Oximetry 04/27/18 04/27/18 04/27/18 07:02 07:04 07:06 Temperature Pulse Rate Respiratory Rate Blood Pressure 149/85 149/85 149/85 Blood Pressure [Left] O2 Sat by Pulse 97 95 96 Oximetry 04/27/18 04/27/18 04/27/18 07:08 07:10 07:12 Temperature Pulse Rate Respiratory Rate Blood Pressure 149/85 149/85 149/85 Blood Pressure [Left] O2 Sat by Pulse 92 94 96 Oximetry 04/27/18 04/27/18 04/27/18 07:14 07:16 07:18 Temperature Pulse Rate Respiratory Rate Blood Pressure 149/85 149/85 149/85 Blood Pressure [Left] O2 Sat by Pulse 98 95 96 Oximetry 04/27/18 04/27/18 04/27/18 07:20 07:22 07:24 Temperature Pulse Rate Respiratory Rate Blood Pressure 149/85 149/85 149/85 Blood Pressure [Left] O2 Sat by Pulse 99 95 98 Oximetry 04/27/18 04/27/18 07:26 07:28 Temperature Pulse Rate Respiratory Rate Blood Pressure 149/85 149/85 Blood Pressure [Left] O2 Sat by Pulse 98 99 Oximetry - EKG Data 04/27/18 06:39 EKG obtained 2020 Sinus tachycardia rate 100 beats a minute left axis deviation normal intervals no ST elevation no signs of ischemia - Medical Decision Making Mr. lFynn presents with fever abdominal discomfort and nausea vomiting. Chest pain appears to be esophageal irritation due to vomiting. With persistent fever and symptoms, I suspect a bacterial GI infection, gastroenteritis. He will benefit from antibiotics. He received IV fluid in the ED. He also received first dose Levaquin. Prescribed 3 days of ciprofloxacin. I strongly encouraged continued hydration. He did kindly request hospitalization. However I did not see indication for readmission. He had only low-grade fever Here in the ED. He was able to tolerate oral intake. He appears much better than on previously documented history and physical. I reviewed blood and urine cultures which were both negative. I reexamine Mr. Flynn prior to discharge. He was pain-free. Upon clarification he explained that he did not receive medication on discharge. He mainly wanted medication for severe nausea. I prescribed promethazine and ciprofloxacin. I did review labs which are notable for persistent leukopenia which could be explained by acute viral syndrome or patient's baseline Neutropenia. Critical care attestation.: If time is entered above; I have spent that time in minutes in the direct care of this critically ill patient, excluding procedure time. ED Disposition Clinical Impression: Gastroenteritis, Fever Disposition: DC-01 TO HOME OR SELFCARE Is pt being admited?: No Does the pt Need Aspirin: No Condition: Stable Instructions: Gastroenteritis (ED), Acute Nausea and Vomiting (ED) Prescriptions: Ciprofloxacin HCl [Ciprofloxacin TAB] 500 mg PO BID 3 Days #6 tablet Promethazine [Phenergan TAB] 25 mg PO Q6HR PRN #20 tab PRN Reason: Nausea Referrals: [facility] [Outside] - 7-10 days Forms: Work/School Release Form(ED)
[2018-04-27] MEDS ORDERED: ZOFRAN IV ONE (06:33)
[2018-04-27] MEDS ORDERED: MERREM 1,000 MG in NACL 0.9% 100 ML IV ONE (07:00)
[2018-04-27 07:04] LABS: Hematocrit 40.5 % (35.5-45.6); Hemoglobin 13.5 gm/dl (11.8-15.2); Mean Corpuscular HGB Conc 33 % (32-34); Mean Corpuscular Volume 83 fl (84-94); Red Cell Distribution Width 12.5 % (13.2-15.2)
[2018-04-27 07:06] LABS: Platelet Count 99 K/mm3 (140-440)
[2018-04-27 07:21] LABS: Albumin 3.6 g/dL (3.9-5); BUN/Creatinine Ratio 9; Blood Urea Nitrogen 9 mg/dL (9-20); Hemolysis Index 231
[2018-04-27 07:37] LABS: Bilirubin,Direct < 0.2 mg/dL (0-0.2)
[2018-04-27 07:38] LABS: Alanine Aminotransferase 61 units/L (7-56)
[2018-04-27 08:25] LABS: Band Neutrophils # (Manual) 0.1 K/mm3; Basophils % (Manual) 0 % (0.0-1.8); Eosinophils % (Manual) 0 % (0.0-4.3); Large Platelets Few; Platelet Estimate Cons; RBC Morphology Normal; Total Cells Counted 100
[2018-04-27 08:28] VITALS: BP 150/91
== END 2018-04-27 08:42 | disposition home or self-care (01) ==
LOC: ED 19:59
DX: K52.9 Noninfective gastroenteritis and colitis, unspecified (principal)
CPT/HCPCS: 36415; 80048; 80076; 83690; 85007; 85025; 93005; 93010; 96361; 96374; 99283; J2405; J7030; J2185; Q0162

== ENCOUNTER 2018-10-02 14:16 | Emergency (ER) | payer OTHER ==
[2018-10-02 15:41] VITALS: BP 157/105
--- NOTE | 2018-10-02 15:41 | Event Note ---
ED Screening Note Date of service: 10/02/18 Time: 15:39 ED Screening Note: This is a 33 y.o. M. that presents to the ER with left medial thigh abscess. Patient think he got bitten by a spider a few days ago. Patient states mosquito bites went away but this got worse. Tetanus 2017 This initial assessment/diagnostic orders/clinical plan/treatment(s) is/are subject to change based on patients health status, clinical progression and re- assessment by fellow clinical providers in the ED. Further treatment and workup at subsequent clinical providers discretion. Patient/guardian urged not to elope from the ED as their condition may be serious if not clinically assessed and managed. Initial orders include: ACC for further evaluation.
--- NOTE | 2018-10-02 18:08 | Emergency Department Report ---
Abscess Boil HPI - HPI Chief Complaint: Skin/Abscess/Foreign Body Stated Complaint: SPIDER BITE ON L LEG/SOB/CHEST PAIN Time Seen by Provider: 10/02/18 15:39 Duration: 3 Days Location: Lower Extremity Severity: Moderate History: Yes Pain, Yes Insect Bite, No Fever, No Purulent Drainage, No Numbness, No Foreign Body, No Previous History HPI: 33 -year-old man comes in reporting he thinks he got bit by a spider on the left inner leg a few days ago. Patient reports it hurts to walk. He reports is up-to-date on his vaccines. He currently takes no medications on a daily basis has no past medical history. No known drug allergies. Home Medications: Previous Rx's Medication Instructions Recorded Last Taken Type methOCARBAMOL [Robaxin TAB] 500 mg PO Q6H PRN #15 tablet 10/31/17 Unknown Rx Ciprofloxacin HCl [Ciprofloxacin 500 mg PO BID 3 Days #6 tablet 04/27/18 Unknown Rx TAB] Promethazine [Phenergan] 25 mg PO Q6HR PRN #20 tab 04/27/18 Unknown Rx Ibuprofen [Motrin 800 MG tab] 800 mg PO Q8HR PRN #20 tablet 10/02/18 Unknown Rx cephALEXin [Keflex] 500 mg PO Q12HR 10 Days #20 cap 10/02/18 Unknown Rx Allergies/Adverse Reactions: Allergies Allergy/AdvReac Type Severity Reaction Status Date / Time No Known Allergies Allergy Verified 04/24/18 16:01 ED Review of Systems ROS: Stated complaint: SPIDER BITE ON L LEG/SOB/CHEST PAIN Other details as noted in HPI Comment: All other systems reviewed and negative ED Past Medical Hx - Past Medical History Previous Medical History?: No - Surgical History Past Surgical History?: No - Social History Smoking Status: Never Smoker Substance Use Type: Alcohol - Medications Home Medications: Home Medications Medication Instructions Recorded Confirmed Last Taken Type methOCARBAMOL [Robaxin TAB] 500 mg PO Q6H PRN #15 tablet 10/31/17 Unknown Rx Ciprofloxacin HCl [Ciprofloxacin 500 mg PO BID 3 Days #6 tablet 04/27/18 Unknown Rx TAB] Promethazine [Phenergan] 25 mg PO Q6HR PRN #20 tab 04/27/18 Unknown Rx Ibuprofen [Motrin 800 MG tab] 800 mg PO Q8HR PRN #20 tablet 10/02/18 Unknown Rx cephALEXin [Keflex] 500 mg PO Q12HR 10 Days #20 cap 10/02/18 Unknown Rx ED Abscess Boil Physical Exam - Exam General: Vital signs noted. No distress. Alert and acting appropriately. Size: 5 cm Exam: Yes Tenderness, Yes Surrounding Cellulites/Erythema, Yes Normal Neurologic Exam, Yes Normal Circulation, No Fluctuance, No Lymphangitis, No Crepitation, No Heart Murmur ED Course Vital Signs 10/02/18 15:39 Temperature 97.6 F Pulse Rate 84 Respiratory 20 Rate Blood Pressure 157/105 O2 Sat by Pulse 99 Oximetry Critical care attestation.: If time is entered above; I have spent that time in minutes in the direct care of this critically ill patient, excluding procedure time. ED Disposition Clinical Impression: Cellulitis of left thigh Disposition: DC-01 TO HOME OR SELFCARE Is pt being admited?: No Does the pt Need Aspirin: No Condition: Stable Instructions: Cellulitis (ED) Additional Instructions: Take antibiotics as prescribed pain medication as needed. Prescriptions: cephALEXin [Keflex] 500 mg PO Q12HR 10 Days #20 cap Ibuprofen [Motrin 800 MG tab] 800 mg PO Q8HR PRN #20 tablet PRN Reason: Pain Referrals: CARLITOS MO MD [Primary Care Provider] - 3-5 Days Forms: Work/School Release Form(ED)
== END 2018-10-02 18:19 | disposition home or self-care (01) ==
LOC: ED 14:16
DX: L03.116 Cellulitis of left lower limb (principal)

== ENCOUNTER 2018-10-17 18:24 | Emergency (ER) | payer OTHER ==
[2018-10-17 19:29] LABS: Basophils % (Auto) 0.2 % (0.0-1.8); Eosinophils % (Auto) 0.2 % (0.0-4.3); Hematocrit 41.4 % (35.5-45.6); Lymphocytes # (Auto) 0.3 K/mm3 (1.2-5.4); Lymphocytes % (Auto) 5.6 % (13.4-35.0); Mean Corpuscular HGB Conc 34 % (32-34); Mean Corpuscular Hemoglobin 29 pg (28-32); Mean Corpuscular Volume 84 fl (84-94); Monocytes # (Auto) 0.2 K/mm3 (0.0-0.8); Monocytes % (Auto) 4.1 % (0.0-7.3); Platelet Count 128 K/mm3 (140-440); Red Blood Count 4.91 M/mm3 (3.65-5.03); Red Cell Distribution Width 13.5 % (13.2-15.2)
[2018-10-17 19:44] LABS: Alanine Aminotransferase 38 units/L (7-56); Albumin 4.1 g/dL (3.9-5); BUN/Creatinine Ratio 15; Blood Urea Nitrogen 20 mg/dL (9-20); Calcium 8.6 mg/dL (8.4-10.2); Hemolysis Index 7; Lipase 45 units/L (13-60)
[2018-10-17] MEDS ORDERED: TORADOL IV ONE ×2 (19:55→21:18)
[2018-10-17] MEDS ORDERED: ZOFRAN IV ONE (19:55)
[2018-10-17] MEDS ORDERED: NACL 0.9% 1000 ML 1,000 ML IV ONE (19:55)
--- NOTE | 2018-10-17 20:22 | Emergency Department Report ---
ED N/V/D HPI - General Chief complaint: Nausea/Vomiting/Diarrhea Stated complaint: NAUSE/DIZZY/LEO Time Seen by Provider: 10/17/18 19:45 Source: patient Mode of arrival: Wheelchair Limitations: No Limitations - History of Present Illness Initial comments: Patient is a 33-year-old -[place] male who presents for headache 08/06 with nausea vomiting since yesterday there is no fever no chills no malaise states headache ,nausea and vomiting sudden onset cannot remember trigger foods however patient tolerated by mouth intake this a.m. tolerating liquids at this time the vomitus consists of food products there is no cough no dysuria physical secondary headache patient states he thinks he is dehydrated patient denies other medical history MD complaint: nausea, vomiting Onset/Timin -: days(s) Description of Vomiting: food contents Description of Diarrhea: other (no diarrhea ) Associated Abdominal Pain: Yes (aching ) Location: diffuse Radiation: none Severity: moderate Pain Scale: 5 Quality: cramping, aching Consistency: constant Improves with: none Worsens with: eating Associated Symptoms: headaches, nausea/vomiting - Related Data Previous Rx's Medication Instructions Recorded Last Taken Type methOCARBAMOL [Robaxin TAB] 500 mg PO Q6H PRN #15 tablet 10/31/17 Unknown Rx Ciprofloxacin HCl [Ciprofloxacin 500 mg PO BID 3 Days #6 tablet 04/27/18 Unknown Rx TAB] Promethazine [Phenergan] 25 mg PO Q6HR PRN #20 tab 04/27/18 Unknown Rx Ibuprofen [Motrin 800 MG tab] 800 mg PO Q8HR PRN #20 tablet 10/02/18 Unknown Rx cephALEXin [Keflex] 500 mg PO Q12HR 10 Days #20 cap 10/02/18 Unknown Rx Acetaminophen [Acetaminophen TAB] 1,000 mg PO Q6HR PRN #30 tablet 10/18/18 Unknown Rx Metoclopramide [Reglan] 10 mg PO Q6H PRN #30 tablet 10/18/18 Unknown Rx diphenhydrAMINE [Benadryl CAP] 25 mg PO Q6HR PRN #30 capsule 10/18/18 Unknown Rx Allergies Allergy/AdvReac Type Severity Reaction Status Date / Time No Known Allergies Allergy Verified 10/17/18 18:39 ED Review of Systems ROS: Stated complaint: NAUSE/DIZZY/LEO Other details as noted in HPI Constitutional: denies: chills, fever Eyes: denies: eye pain, eye discharge, vision change ENT: denies: ear pain, throat pain Respiratory: denies: cough, shortness of breath, wheezing Cardiovascular: denies: chest pain, palpitations Endocrine: no symptoms reported Gastrointestinal: abdominal pain, nausea, vomiting Genitourinary: denies: urgency, dysuria Musculoskeletal: denies: back pain, joint swelling, arthralgia Skin: denies: rash, lesions Neurological: headache. denies: weakness, numbness, paresthesias, confusion, vertigo Psychiatric: as per HPI, anxiety Hematological/Lymphatic: denies: easy bleeding, easy bruising ED Past Medical Hx - Past Medical History Previous Medical History?: No - Surgical History Past Surgical History?: No - Social History Smoking Status: Never Smoker Substance Use Type: None - Medications Home Medications: Home Medications Medication Instructions Recorded Confirmed Last Taken Type methOCARBAMOL [Robaxin TAB] 500 mg PO Q6H PRN #15 tablet 10/31/17 Unknown Rx Ciprofloxacin HCl [Ciprofloxacin 500 mg PO BID 3 Days #6 tablet 04/27/18 Unknown Rx TAB] Promethazine [Phenergan] 25 mg PO Q6HR PRN #20 tab 04/27/18 Unknown Rx Ibuprofen [Motrin 800 MG tab] 800 mg PO Q8HR PRN #20 tablet 10/02/18 Unknown Rx cephALEXin [Keflex] 500 mg PO Q12HR 10 Days #20 cap 10/02/18 Unknown Rx Acetaminophen [Acetaminophen TAB] 1,000 mg PO Q6HR PRN #30 tablet 10/18/18 Unknown Rx Metoclopramide [Reglan] 10 mg PO Q6H PRN #30 tablet 10/18/18 Unknown Rx diphenhydrAMINE [Benadryl CAP] 25 mg PO Q6HR PRN #30 capsule 10/18/18 Unknown Rx ED Physical Exam - General Limitations: No Limitations General appearance: alert, in no apparent distress - Head Head exam: Present: atraumatic, normocephalic, normal inspection - Eye Eye exam: Present: normal appearance, PERRL Pupils: Present: normal accommodation - ENT ENT exam: Present: normal orophraynx, mucous membranes moist, TM's normal bilaterally, normal external ear exam - Neck Neck exam: Present: normal inspection, full ROM. Absent: tenderness, meningismus, lymphadenopathy, thyromegaly - Respiratory Respiratory exam: Present: normal lung sounds bilaterally. Absent: respiratory distress, wheezes, stridor, chest wall tenderness - Cardiovascular Cardiovascular Exam: Present: regular rate, normal rhythm, normal heart sounds. Absent: systolic murmur, diastolic murmur, rubs, gallop - GI/Abdominal GI/Abdominal exam: Present: soft, normal bowel sounds. Absent: distended, tenderness, guarding, rebound, rigid, bruit, hernia - Rectal Rectal exam: Present: deferred - Extremities Exam Extremities exam: Present: normal inspection - Back Exam Back exam: Present: normal inspection, full ROM. Absent: tenderness, CVA tenderness (R), CVA tenderness (L), muscle spasm, paraspinal tenderness, vertebral tenderness, rash noted - Neurological Exam Neurological exam: Present: alert, oriented X3, CN II-XII intact, normal gait, reflexes normal. Absent: motor sensory deficit - Expanded Neurological Exam Expanded Patient oriented to: Present: person, place, time Speech: Present: fluid speech Cranial nerves: EOM's Intact: Normal, Gag Reflex: Normal, Tongue Deviation: Normal, Nystagmus: Normal, Facial Sensation: Normal Cerebellar function: Finger to Nose: Normal, Heel to Marcus: Normal, Romberg: Normal Upper motor neuron: Craig Neglect: Normal, Pronator Drift: Normal, Babinski Sign: Normal, Sensory Extinction: Normal Motor strength exam: RUE: 5, LUE: 5, RLE: 5, LLE: 5 DTR: bicep (R): 2+, bicep (L): 2+, ankle (R): 2+, ankle (L): 2+ Best Eye Response ([place]): (4) open spontaneously Best Motor Response (Humberto): (6) obeys commands Best Verbal Response ([place]): (5) oriented Humberto Total: 15 - Psychiatric Psychiatric exam: Present: normal affect, normal mood, anxious. Absent: homicidal ideation, suicidal ideation - Skin Skin exam: Present: warm, dry, intact, normal color. Absent: rash ED Course Vital Signs 10/17/18 18:39 Temperature 100.6 F H Pulse Rate 116 H Respiratory 16 Rate Blood Pressure 111/90 O2 Sat by Pulse 99 Oximetry ED Medical Decision Making - Lab Data Result diagrams: 10/17/18 19:04 10/17/18 19:04 Labs 10/17/18 10/17/18 10/17/18 19:04 19:04 22:50 WBC 5.8 RBC 4.91 Hgb 14.0 Hct 41.4 MCV 84 MCH 29 MCHC 34 RDW 13.5 Plt Count 128 L Lymph % (Auto) 5.6 L [place] % (Auto) 4.1 Eos % (Auto) 0.2 Baso % (Auto) 0.2 Lymph # 0.3 L [place] # 0.2 Eos # 0.0 Baso # 0.0 Seg Neutrophils % 89.9 H Seg Neutrophils # 5.2 Sodium 137 Potassium 3.8 Chloride 101.6 Carbon Dioxide 24 Anion Gap 15 BUN 20 Creatinine 1.3 Estimated GFR > 60 BUN/Creatinine Ratio 15 Glucose 95 Calcium 8.6 Total Bilirubin 0.30 AST 30 ALT 38 Alkaline Phosphatase 42 Total Protein 7.5 Albumin 4.1 Albumin/Globulin Ratio 1.2 Amylase 64 Lipase 45 Urine Color Yellow Urine Turbidity Clear Urine pH 5.0 Ur Specific [place] 1.016 Urine Protein <15 mg/dl Urine Glucose (UA) Neg Urine Ketones Neg Urine Blood Neg Urine Nitrite Neg Urine Bilirubin Neg Urine Urobilinogen < 2.0 Ur Leukocyte Esterase Neg Urine WBC (Auto) 1.0 Urine RBC (Auto) < 1.0 Urine Mucus Few - Medical Decision Making Headache is resolved, Headache was similar to headaches of past, thre is no fe justin or chills, no nausea and vomiting resolved there is no abd tenderness plan pt for dc to home in stable condition with rx for Benadryl, Reglan, and tylenol pt will follow up with his pcp in 2-3 days return to ed if symptoms worsen, pt verbalized agreement and understanding of same. Critical care attestation.: If time is entered above; I have spent that time in minutes in the direct care of this critically ill patient, excluding procedure time. ED Disposition Clinical Impression: Headache Qualifiers: Headache type: unspecified Headache chronicity pattern: acute headache Intractability: not intractable Qualified Code(s): R51 - Headache Nausea and vomiting Qualifiers: Vomiting type: unspecified Vomiting Intractability: non-intractable Qualified Code(s): R11.2 - Nausea with vomiting, unspecified Disposition: DC-01 TO HOME OR SELFCARE Is pt being admited?: No Does the pt Need Aspirin: No Condition: Stable Instructions: Acute Headache (ED), Acute Nausea and Vomiting (ED) Prescriptions: Acetaminophen [Acetaminophen TAB] 1,000 mg PO Q6HR PRN #30 tablet PRN Reason: pain diphenhydrAMINE [Benadryl CAP] 25 mg PO Q6HR PRN #30 capsule PRN Reason: Headache Metoclopramide [Reglan] 10 mg PO Q6H PRN #30 tablet PRN Reason: Headache [facility] [Primary Care Provider] - 3-5 Days ARIELLA HASSAN MD [Referring] - 3-5 Days ARABELLA DONALD MD [Staff Physician] - 3-5 Days Forms: Work/School Release Form(ED) Time of Disposition: 00:33
[2018-10-17] MEDS ORDERED: REGLAN IV ONE (21:18)
[2018-10-17] MEDS ORDERED: BENADRYL IV ONE (21:18)
[2018-10-17] MEDS ORDERED: DECADRON IV ONE (21:18)
[2018-10-17 23:40] LABS: Bilirubin,Urine NEG (Negative); Blood,Urine NEG (Negative); Color,Urine Yellow (Yellow); Mucus,Urine FEW /HPF; Protein,Urine <15 mg/dL mg/dL (Negative); RBC,Urine < 1.0 /HPF (0.0-6.0); Urobilinogen,Urine < 2.0 mg/dL (<2.0)
[2018-10-18 00:30] VITALS: BP 102/64
== END 2018-10-18 00:53 | disposition home or self-care (01) ==
LOC: ED 18:24
DX: R11.2 Nausea with vomiting, unspecified (principal); R51 Headache; Z79.899 Other long term (current) drug therapy
CPT/HCPCS: 36415; 80053; 81001; 82150; 83690; 85025; 96361; 96374; 96375; 96376; 99283; J1100; J1200; J1885; J2405; J2765; J7030

== ENCOUNTER 2018-10-29 20:09 | Inpatient (IN) | payer SELFPAY ==
[2018-10-29] MEDS ORDERED: ZOFRAN IV ONE ×2 (20:36→20:40)
[2018-10-29] MEDS ORDERED: NACL 0.9% 1000 ML 1,000 ML IV ONE ×3 (20:37→20:41)
[2018-10-29] MEDS ORDERED: ZOSYN/NS 3.375GM/50ML 3.375 GM/50 ML BAG IV ONE (20:41)
--- NOTE | 2018-10-29 20:44 | Emergency Department Report ---
ED Shortness of Breath HPI - General Chief Complaint: Dyspnea/Respdistress Stated Complaint: NAUSEA, ANXIETY, WEAKNESS, COLD SWEATS, Time Seen by Provider: 10/29/18 20:36 Source: patient Mode of arrival: Ambulatory Limitations: No Limitations - History of Present Illness Initial Comments: Patient is 33 years old male with no significant past medical history. Patient presented to the ER complaining of shortness of breath, nausea and vomiting for the last 3 days. Patient found to have a blood pressure of 81/36 and tachycardic at 108. Sepsis protocol initiated. Patient received 2 L of fluids and given Zosyn. Patient denied any abdominal pain or diarrhea. No fever or chills. MD Complaint: shortness of breath, cough - Related Data Previous Rx's Medication Instructions Recorded Last Taken Type methOCARBAMOL [Robaxin TAB] 500 mg PO Q6H PRN #15 tablet 10/31/17 Unknown Rx Ciprofloxacin HCl [Ciprofloxacin 500 mg PO BID 3 Days #6 tablet 04/27/18 Unknown Rx TAB] Promethazine [Phenergan] 25 mg PO Q6HR PRN #20 tab 04/27/18 Unknown Rx Ibuprofen [Motrin 800 MG tab] 800 mg PO Q8HR PRN #20 tablet 10/02/18 Unknown Rx cephALEXin [Keflex] 500 mg PO Q12HR 10 Days #20 cap 10/02/18 Unknown Rx Acetaminophen [Acetaminophen TAB] 1,000 mg PO Q6HR PRN #30 tablet 10/18/18 Unknown Rx Metoclopramide [Reglan] 10 mg PO Q6H PRN #30 tablet 10/18/18 Unknown Rx diphenhydrAMINE [Benadryl CAP] 25 mg PO Q6HR PRN #30 capsule 10/18/18 Unknown Rx Allergies Allergy/AdvReac Type Severity Reaction Status Date / Time No Known Allergies Allergy Verified 10/17/18 18:39 ED Review of Systems ROS: Stated complaint: NAUSEA, ANXIETY, WEAKNESS, COLD SWEATS, Other details as noted in HPI Comment: All other systems reviewed and negative Constitutional: denies: chills, fever Respiratory: cough, shortness of breath. denies: orthopnea, SOB with exertion, SOB at rest Cardiovascular: denies: chest pain, palpitations Gastrointestinal: nausea, vomiting. denies: abdominal pain, diarrhea, constipation, hematemesis, melena, hematochezia Musculoskeletal: denies: back pain Neurological: denies: headache, weakness, numbness, paresthesias, confusion ED Past Medical Hx - Social History Smoking Status: Never Smoker Substance Use Type: Alcohol - Medications Home Medications: Home Medications Medication Instructions Recorded Confirmed Last Taken Type methOCARBAMOL [Robaxin TAB] 500 mg PO Q6H PRN #15 tablet 10/31/17 Unknown Rx Ciprofloxacin HCl [Ciprofloxacin 500 mg PO BID 3 Days #6 tablet 04/27/18 Unknown Rx TAB] Promethazine [Phenergan] 25 mg PO Q6HR PRN #20 tab 04/27/18 Unknown Rx Ibuprofen [Motrin 800 MG tab] 800 mg PO Q8HR PRN #20 tablet 10/02/18 Unknown Rx cephALEXin [Keflex] 500 mg PO Q12HR 10 Days #20 cap 10/02/18 Unknown Rx Acetaminophen [Acetaminophen TAB] 1,000 mg PO Q6HR PRN #30 tablet 10/18/18 Unknown Rx Metoclopramide [Reglan] 10 mg PO Q6H PRN #30 tablet 10/18/18 Unknown Rx diphenhydrAMINE [Benadryl CAP] 25 mg PO Q6HR PRN #30 capsule 10/18/18 Unknown Rx ED Physical Exam - General Limitations: No Limitations General appearance: alert, in no apparent distress - Head Head exam: Present: atraumatic, normocephalic, normal inspection - ENT ENT exam: Present: mucous membranes dry - Neck Neck exam: Present: normal inspection, full ROM. Absent: tenderness, meningismus, lymphadenopathy, thyromegaly - Respiratory Respiratory exam: Present: normal lung sounds bilaterally - Cardiovascular Cardiovascular Exam: Present: tachycardia - GI/Abdominal GI/Abdominal exam: Present: soft, normal bowel sounds. Absent: distended, tenderness, guarding, rebound, rigid, organomegaly, mass, bruit, pulsatile mass, hernia - Back Exam Back exam: Present: normal inspection, full ROM. Absent: tenderness, CVA tenderness (R), CVA tenderness (L), vertebral tenderness - Neurological Exam Neurological exam: Present: alert, oriented X3, CN II-XII intact, normal gait, reflexes normal - Skin Skin exam: Present: warm, intact, normal color ED Course Vital Signs 10/29/18 10/29/18 10/29/18 20:18 20:33 20:35 Temperature 98.7 F Pulse Rate 108 H 103 H Respiratory 20 14 Rate Blood Pressure 81/36 89/46 O2 Sat by Pulse 98 99 99 Oximetry 10/29/18 10/29/18 10/29/18 20:41 20:45 20:50 Temperature Pulse Rate 103 H 99 H 100 H Respiratory 19 17 13 Rate Blood Pressure 89/46 89/46 97/55 O2 Sat by Pulse 98 97 96 Oximetry 10/29/18 10/29/18 10/29/18 20:55 21:00 21:05 Temperature Pulse Rate 95 H 98 H 98 H Respiratory 19 19 17 Rate Blood Pressure 90/49 100/55 105/50 O2 Sat by Pulse 89 92 99 Oximetry 10/29/18 10/29/18 10/29/18 21:10 21:15 21:20 Temperature Pulse Rate 99 H 92 H 94 H Respiratory 21 16 12 Rate Blood Pressure 111/64 96/53 105/54 O2 Sat by Pulse 91 98 97 Oximetry 10/29/18 10/29/18 10/29/18 21:25 21:30 21:35 Temperature Pulse Rate 95 H 93 H 92 H Respiratory 19 19 19 Rate Blood Pressure 105/54 86/45 97/52 O2 Sat by Pulse 99 97 99 Oximetry 10/29/18 21:40 Temperature Pulse Rate 92 H Respiratory 21 Rate Blood Pressure 111/54 O2 Sat by Pulse 95 Oximetry ED Medical Decision Making - Lab Data Result diagrams: 10/29/18 20:46 10/29/18 20:45 - Radiology Data Radiology results: report reviewed CT abdomen and pelvis is unremarkable. Chest x-ray is negative for acute finding. - Medical Decision Making Patient is 33 years old male with no significant past medical history. Patient presented to the ER complaining of shortness of breath, nausea and vomiting for the last 3 days. Patient found to have a blood pressure of 81/36 and tachycardic at 108. Sepsis protocol initiated. Patient received 2 L of fluids and given Zosyn. Patient denied any abdominal pain or diarrhea. No fever or chills. Patient found to be in acute renal failure was a creatinine of 6.8 and the BUN of 42. CT abdomen and pelvis is unremarkable. Chest x-ray is negative for acut e finding. I discussed the patient is Dr. Nayana Oneal, should return to the patient to medical service for further management. Critical Care Time: Yes Critical care time in (mins) excluding proc time.: 30 Critical care attestation.: If time is entered above; I have spent that time in minutes in the direct care of this critically ill patient, excluding procedure time. ED Disposition Clinical Impression: Acute renal failure, Intractable nausea and vomiting, Dehydration Disposition: OP ADMIT IP TO THIS HOSP Is pt being admited?: Yes Condition: Stable
[2018-10-29 21:08] LABS: Basophils % (Auto) 0.3 % (0.0-1.8); Eosinophils % (Auto) 0.3 % (0.0-4.3); Hematocrit 43.6 % (35.5-45.6); Hemoglobin 14.6 gm/dl (11.8-15.2); Lymphocytes # (Auto) 0.6 K/mm3 (1.2-5.4); Lymphocytes % (Auto) 4.4 % (13.4-35.0); Mean Corpuscular HGB Conc 34 % (32-34); Mean Corpuscular Volume 85 fl (84-94); Monocytes # (Auto) 1.3 K/mm3 (0.0-0.8); Monocytes % (Auto) 9.3 % (0.0-7.3); Platelet Count 104 K/mm3 (140-440); Red Blood Count 5.16 M/mm3 (3.65-5.03); Red Cell Distribution Width 14.1 % (13.2-15.2)
[2018-10-29 21:30] LABS: Albumin 3.6 g/dL (3.9-5)
--- NOTE | 2018-10-29 21:40 | XRay Report ---
CHEST 1 VIEW 10/29/2018 8:51 PM INDICATION / CLINICAL INFORMATION: SOB. COMPARISON: Chest x-ray 04/24/2018 FINDINGS: SUPPORT DEVICES: None. HEART / MEDIASTINUM: No significant abnormality. LUNGS / PLEURA: Suboptimal inspiratory effort. No significant pulmonary or pleural abnormality. No pn eumothorax. ADDITIONAL FINDINGS: No significant additional findings. IMPRESSION: 1. No acute findings. Signer Name: Omega Madera MD Signed: 10/29/2018 9:36 PM Workstation Name: [id number]
--- NOTE | 2018-10-29 23:35 | Cat Scan Report ---
CT of the abdomen and pelvis without contrast INDICATION: Nausea and vomiting COMPARISON: 04/24/2018 FINDINGS: Lung bases are clear. The liver, spleen, pancreas, adrenal glands and kidneys show no gross abnormalities. No definite gallbladder or biliary tree abnormality. No fluid or adenopathy in the up per abdomen. CT of the pelvis shows a normal appendix. No diverticulosis or diverticulitis. No bowel obstruction o r hernia. No significant skeletal lesion. Few prominent inguinal and pelvic lymph nodes probably reac tive. IMPRESSION: Negative study. Automated exposure control was utilized to diminish radiation dose. Signer Name: Kenji Levy MD Signed: 10/29/2018 11:30 PM Workstation Name: [email or web address] [email or web address]
--- NOTE | 2018-10-29 23:48 | History and Physical Report ---
History of Present Illness Date of examination: 10/30/18 History of present illness: 33 -year-old man with a history of HIV, no follow-up comes emergency room with complaints of nausea vomiting, 3 times a day, multiple episodes of diarrhea, generalized body aches and chills. He's completed recent antibiotic where he wa s seen in the emergency room for spider bite and was given Keflex, he completed this 2 nights ago. Review Of Systems: Constitutional: no weight loss, fever Ears, eyes, nose, mouth and throat: no nasal congestion, no nasal discharge, no sinus pressure, blurry vision, diplopia Neck: No neck pain or rigidity. Cardiovascular: No palpitations, chest pain Respiratory: No shortness of breath, cough Gastrointestinal: No hematochezia, abdominal pain Genitourinary : no dysuria, frequency , hematuria Musculoskeletal: no muscle ache , joint pain Integumentary: no rash, no pruritis Neurological: no parathesias, focal weakness Endocrine: no cold or heat intolerance, no polyuria or polydipsia Hematologic/Lymphatic: no easy bruising, no easy bleeding, no gland swelling Allergic/Immunologic: no urticaria, no angioedema. PAST MEDICAL HISTORY:HIV PAST SURGICAL HISTORY: None FAMILY HISTORY:hypertension SOCIAL HISTORY: Denies tobacco, drugs, social alcohol Medications and Allergies Allergies Allergy/AdvReac Type Severity Reaction Status Date / Time No Known Allergies Allergy Verified 10/17/18 18:39 Home Medications Medication Instructions Recorded Confirmed Last Taken Type methOCARBAMOL [Robaxin TAB] 500 mg PO Q6H PRN #15 tablet 10/31/17 Unknown Rx Ciprofloxacin HCl [Ciprofloxacin 500 mg PO BID 3 Days #6 tablet 04/27/18 Unknown Rx TAB] Promethazine [Phenergan] 25 mg PO Q6HR PRN #20 tab 04/27/18 Unknown Rx Ibuprofen [Motrin 800 MG tab] 800 mg PO Q8HR PRN #20 tablet 10/02/18 Unknown Rx cephALEXin [Keflex] 500 mg PO Q12HR 10 Days #20 cap 10/02/18 Unknown Rx Acetaminophen [Acetaminophen TAB] 1,000 mg PO Q6HR PRN #30 tablet 10/18/18 Unknown Rx Metoclopramide [Reglan] 10 mg PO Q6H PRN #30 tablet 10/18/18 Unknown Rx diphenhydrAMINE [Benadryl CAP] 25 mg PO Q6HR PRN #30 capsule 10/18/18 Unknown Rx Exam - Physical Exam Narrative exam: General Apperance: The patient sitting in bed no acute distress HEENT: Normocephalic, atraumatic. Pupils equally round and reactive to light, extraocular movement intact, and no sclericterus or JVD or thyromegaly or nodule. Neck supple, no carotid bruit, mucous membranes dry, no exudate or erythema Heart: S1-S2, regular is rhythm Lungs: Clear to auscultation bilaterally, breathing comfortable Abdomen: Positive bowel sounds, soft, nontender, nondistended, no organomegaly Extremities: No edema cyanosis clubbing Skin: no rash, nodule, warm and dry Neuro:CN 2 -12 intact, motry/sensory intact, speech is fluent - Constitutional Vitals: Temp Pulse Resp BP Pulse Ox 98.7 F 92 H 21 111/54 95 10/29/18 20:18 10/29/18 21:40 10/29/18 21:40 10/29/18 21:40 10/29/18 21:40 Results - Labs CBC & Chem 7: 10/29/18 20:46 10/29/18 20:45 Labs: Abnormal lab results 10/29/18 10/29/18 Range/Units 20:45 20:46 WBC 14.0 H (4.5-11.0) K/mm3 RBC 5.16 H (3.65-5.03) M/mm3 Plt Count 104 L (140-440) K/mm3 Lymph % (Auto) 4.4 L (13.4-35.0) % [place] % (Auto) 9.3 H (0.0-7.3) % Lymph # 0.6 L (1.2-5.4) K/mm3 [place] # 1.3 H (0.0-0.8) K/mm3 Seg Neutrophils % 85.7 H (40.0-70.0) % Seg Neutrophils # 12.0 H (1.8-7.7) K/mm3 Sodium 131 L (137-145) mmol/L Chloride 97.2 L (98-107) mmol/L Carbon Dioxide 20 L (22-30) mmol/L BUN 43 H (9-20) mg/dL Creatinine 6.8 H (0.8-1.5) mg/dL Glucose 153 H (75-100) mg/dL Calcium 8.0 L (8.4-10.2) mg/dL AST 67 H (5-40) units/L Alkaline Phosphatase 33 L (35-129) units/L Albumin 3.6 L (3.9-5) g/dL - Imaging and Cardiology CT scan - abdomen: report reviewed CT scan - pelvis: report reviewed Assessment and Plan Assessment Acute Renal Failure Diarrhea, r/o c/diff Hyponatremia Thrombocytopenia leukocytosis, stress induced HIV Plan admit to medicine Start IV fluid, check urine electrolyes Consult renal, Check stool samples, cdiff DVT prophalaxis
[2018-10-30] MEDS ORDERED: ZOFRAN IV PRN (00:04)
[2018-10-30] MEDS ORDERED: REGLAN IV PRN (00:04)
[2018-10-30] MEDS ORDERED: SODIUM CHLORIDE FLUSH SYRINGE 10 ML IV PRN (00:04)
[2018-10-30] MEDS ORDERED: TYLENOL PO PRN (00:04)
[2018-10-30] MEDS: NACL 0.9% 1000 ML 1,000 ML IV SCH ×2 (04:09→10:25)
[2018-10-30] MEDS: REGLAN IV PRN ×2 (04:09→12:44)
[2018-10-30 05:57] LABS: Basophils % (Auto) 0.2 % (0.0-1.8); Eosinophils # (Auto) 0.1 K/mm3 (0.0-0.4); Eosinophils % (Auto) 0.7 % (0.0-4.3); Hematocrit 39.2 % (35.5-45.6); Hemoglobin 13.3 gm/dl (11.8-15.2); Lymphocytes # (Auto) 0.8 K/mm3 (1.2-5.4); Lymphocytes % (Auto) 8.9 % (13.4-35.0); Mean Corpuscular HGB Conc 34 % (32-34); Mean Corpuscular Volume 84 fl (84-94); Monocytes # (Auto) 1.1 K/mm3 (0.0-0.8); Monocytes % (Auto) 11.7 % (0.0-7.3); Red Blood Count 4.69 M/mm3 (3.65-5.03); Red Cell Distribution Width 13.8 % (13.2-15.2)
[2018-10-30 05:59] LABS: Platelet Count 91 K/mm3 (140-440)
[2018-10-30 06:14] LABS: Calcium 7.4 mg/dL (8.4-10.2)
[2018-10-30] MEDS: LOVENOX SUB-Q SCH (10:25)
[2018-10-30] MEDS: SODIUM CHLORIDE FLUSH SYRINGE 10 ML IV SCH ×2 (10:26→22:08)
--- NOTE | 2018-10-30 10:38 | Consultation ---
History of Present Illness - Reason for Consult Consult date: 10/30/18 acute renal failure Requesting physician: WILD LIVINGSTON - History of Present Illness Patient presents to the emergency room with the complaints of nausea vomiting and diarrhea for the last 2-3 days. Patient states that he had a spider bite and was given antibiotic. States that he had completed that about 2 days ago. He also admits to taking some nonsteroidals including ibuprofen and Goody's. Denies any gross hematuria or frequent urinary tract infection. Patient does have a history of HIV disease. However he is not currently being followed by anybody and not on any HIV meds. Review of records indicated that he had a serum creatinine of 1.3 in September of this year. He has received IV hydration overnight and his serum creatinine seems to be improving as well. He is currently nonoliguric also Past History Past Medical History: other (HIV ) Past Surgical History: No surgical history Family history: no significant family history Medications and Allergies Allergies Allergy/AdvReac Type Severity Reaction Status Date / Time No Known Allergies Allergy Verified 10/17/18 18:39 Home Medications Medication Instructions Recorded Confirmed Last Taken Type methOCARBAMOL [Robaxin TAB] 500 mg PO Q6H PRN #15 tablet 10/31/17 Unknown Rx Ciprofloxacin HCl [Ciprofloxacin 500 mg PO BID 3 Days #6 tablet 04/27/18 U nknown Rx TAB] Promethazine [Phenergan] 25 mg PO Q6HR PRN #20 tab 04/27/18 Unknown Rx Ibuprofen [Motrin 800 MG tab] 800 mg PO Q8HR PRN #20 tablet 10/02/18 Unknown Rx cephALEXin [Keflex] 500 mg PO Q12HR 10 Days #20 cap 10/02/18 Unknown Rx Acetaminophen [Acetaminophen TAB] 1,000 mg PO Q6HR PRN #30 tablet 10/18/18 Unknown Rx Metoclopramide [Reglan] 10 mg PO Q6H PRN #30 tablet 10/18/18 Unknown Rx diphenhydrAMINE [Benadryl CAP] 25 mg PO Q6HR PRN #30 capsule 10/18/18 Unknown Rx Active Meds: Active Medications Acetaminophen (Tylenol) 650 mg PO Q4H PRN PRN Reason: Pain MILD(1-3)/Fever >100.5/ALVAREZ Enoxaparin Sodium (Lovenox) 30 mg SUB-Q QDAY EZ Last Admin: 10/30/18 10:25 Dose: 30 mg Documented by: Sodium Chloride (Nacl 0.9% 1000 Ml) 1,000 mls @ 150 mls/hr IV DIRECT [facility] Last Admin: 10/30/18 10:25 Dose: 150 mls/hr Documented by: Metoclopramide HCl (Reglan) 5 mg IV Q6H PRN PRN Reason: Nausea And Vomiting Last Admin: 10/30/18 04:09 Dose: 5 mg Documented by: Ondansetron HCl (Zofran) 4 mg IV Q4H PRN PRN Reason: Nausea And Vomiting Sodium Chloride (Sodium Chloride Flush Syringe 10 Ml) 10 ml IV BID [facility] Last Admin: 10/30/18 10:26 Dose: 10 ml Documented by: Sodium Chloride (Sodium Chloride Flush Syringe 10 Ml) 10 ml IV PRN PRN PRN Reason: LINE FLUSH Review of Systems All systems: negative (negative except as noted above) Exam - Vital Signs Vital signs: Vital Signs Temp Pulse Resp BP Pulse Ox 98.7 F 108 H 20 81/36 98 10/29/18 20:18 10/29/18 20:18 10/29/18 20:18 10/29/18 20:18 10/29/18 20:18 - General Appearance General appearance: well-developed, well-nourished, appears stated age EENT: PERRL, mucous membranes moist Neck: Present: neck supple, trachea midline. Absent: JVD/HJR, Masses Respiratory: Clear to Ascultation Heart: regular, normal heart rate, S1S2, no murmurs Gastrointestinal: Present: normal, normoactive bowel sounds Integumentary: no rash, other (no edema ) Results - Lab Results 10/30/18 05:23 10/30/18 05:23 Most recent lab results Calcium 7.4 mg/dL (8.4-10.2) L 10/30/18 05:23 Assessment and Plan Impression * Acute kidney injury * HIV disease * Nausea vomiting and diarrhea * Recent spider bite * Metabolic acidosis Recommendations * Suspect a component of prerenal as ischemia. * History of creatinine was 1.3 in September 2018 * Renal function seems to be improving with IV hydration. Continue isotonic IV fluid * He is also acidotic. Add bicarbonate to the IV fluid * Check a UA as well as a fractional excretion of sodium * Check vasculitis workup * Renal ultrasound to assess kidney size and echogenicity * Avoid nephrotoxins * Monitor fluid status and electrolytes closely * Thank you very much for the consultation. Shall follow her along with you
[2018-10-30] MEDS ORDERED: NACL 0.45% 1000 ML 1,000 ML with SODIUM BICARBONATE 75 MEQ IV SCH (11:00)
[2018-10-30] MEDS ORDERED: SODIUM BICARBONATE 75 MEQ in NACL 0.45% 1000 ML 1,000 ML IV ONE (11:00)
[2018-10-30 11:23] LABS: Bilirubin,Urine NEG (Negative); Blood,Urine SM (Negative); Color,Urine Yellow (Yellow); Mucus,Urine FEW /HPF; Protein,Urine <15 mg/dL mg/dL (Negative); Urobilinogen,Urine < 2.0 mg/dL (<2.0)
[2018-10-30 11:45] LABS: Creatinine,Urine 306.8 mg/dL (0.1-20.0)
[2018-10-30 11:45] LABS: Creatinine,Urine 305.2 mg/dL (0.1-20.0)
[2018-10-30 11:55] LABS: Hepatitis B Surface Antigen Non-Reactive (Negative); Hepatitis C Virus Antibody Non-Reactive (NonReactive)
--- NOTE | 2018-10-30 12:38 | Progress Note ---
Assessment and Plan Assessment and plan: --Acute kidney injury; secondary to vasomotor nephropathy Gen. hydration, monitor renal function, avoid nephrotoxins Nephrology is following --Metabolic acidosis; due to acute kidney injury Continue IV hydration, mild improvement, closely monitor --Intractable nausea vomiting and diarrhea; supportive cares Stool analysis, rule out C. difficile, contact isolation if needed --History of HIV; noncompliance with medications ID evaluation if needed, Patient advised to follow private ID or health Department for HIV needs upon discharge --Soft recent spider bite; supportive care with Benadryl and steroids if needed --DVT prophylaxis; Lovenox renal dose Monitor closely and adjust management as needed Nephrology evaluation and recommendation as noted and appreciated Plan of care reviewed with the patient and his nurse History Interval history: Patient seen and examined medical records reviewed Patient is admitted with acute nausea vomiting and diarrhea History of spider bite Patient feels slightly better no new complaints Vital signs noted Hospitalist Physical - Constitutional Vitals: Temp Pulse Resp BP Pulse Ox 98.3 F 95 H 20 94/44 97 10/30/18 05:11 10/30/18 05:11 10/30/18 05:11 10/30/18 05:11 10/30/18 09:39 General appearance: Present: no acute distress, well-nourished, obese - EENT Eyes: Present: PERRL, EOM intact - Neck Neck: Present: supple, normal ROM - Respiratory Respiratory effort: normal Respiratory: bilateral: diminished, negative: rales, rhonchi, wheezing - Cardiovascular Rhythm: regular Heart Sounds: Present: S1 & S2 - Extremities Extremities: no ischemia, No edema - Abdominal General gastrointestinal: soft, non-tender, non-distended, normal bowel sounds - Integumentary Integumentary: Present: clear, warm - Psychiatric Psychiatric: appropriate mood/affect, cooperative - Neurologic Neurologic: CNII-XII intact, moves all extremities Results - Labs CBC & Chem 7: 10/30/18 05:23 10/30/18 05:23 Labs: Laboratory Last Values WBC 9.2 K/mm3 (4.5-11.0) 10/30/18 05:23 RBC 4.69 M/mm3 (3.65-5.03) 10/30/18 05:23 Hgb 13.3 gm/dl (11.8-15.2) 10/30/18 05:23 Hct 39.2 % (35.5-45.6) 10/30/18 05:23 MCV 84 fl (84-94) 10/30/18 05:23 MCH 28 pg (28-32) 10/30/18 05:23 MCHC 34 % (32-34) 10/30/18 05:23 RDW 13.8 % (13.2-15.2) 10/30/18 05:23 Plt Count 91 K/mm3 (140-440) L 10/30/18 05:23 Lymph % (Auto) 8.9 % (13.4-35.0) L 10/30/18 05:23 [place] % (Auto) 11.7 % (0.0-7.3) H 10/30/18 05:23 Eos % (Auto) 0.7 % (0.0-4.3) 10/30/18 05:23 Baso % (Auto) 0.2 % (0.0-1.8) 10/30/18 05:23 Lymph # 0.8 K/mm3 (1.2-5.4) L 10/30/18 05:23 [place] # 1.1 K/mm3 (0.0-0.8) H 10/30/18 05:23 Eos # 0.1 K/mm3 (0.0-0.4) 10/30/18 05:23 Baso # 0.0 K/mm3 (0.0-0.1) 10/30/18 05:23 Seg Neutrophils % 78.5 % (40.0-70.0) H 10/30/18 05:23 Seg Neutrophils # 7.2 K/mm3 (1.8-7.7) 10/30/18 05:23 Sodium 136 mmol/L (137-145) L 10/30/18 05:23 Potassium 3.4 mmol/L (3.6-5.0) L 10/30/18 05:23 Chloride 104.0 mmol/L (98-107) 10/30/18 05:23 Carbon Dioxide 18 mmol/L (22-30) L 10/30/18 05:23 17 mmol/L 10/30/18 05:23 BUN 42 mg/dL (9-20) H 10/30/18 05:23 4.9 mg/dL (0.8-1.5) H 10/30/18 05:23 Estimated GFR 17 ml/min 10/30/18 05:23 9 % 10/30/18 05:23 Glucose 100 mg/dL (75-100) 10/30/18 05:23 Lactic Acid 1.30 mmol/L (0.7-2.0) 10/29/18 23:39 Calcium 7.4 mg/dL (8.4-10.2) L 10/30/18 05:23 0.80 mg/dL (0.1-1.2) 10/29/18 20:45 AST 67 units/L (5-40) H 10/29/18 20:45 ALT 56 units/L (7-56) 10/29/18 20:45 33 units/L (35-129) L 10/29/18 20:45 993 units/L (55-170) H 10/30/18 10:55 7.2 g/dL (6.3-8.2) 10/29/18 20:45 3.6 g/dL (3.9-5) L 10/29/18 20:45 1.0 % 10/29/18 20:45 Yellow (Yellow) 10/30/18 Unknown Clear (Clear) 10/30/18 Unknown 5.0 (5.0-7.0) 10/30/18 Unknown Ur Specific [place] 1.015 (1.003-1.030) 10/30/18 Unknown <15 mg/dl mg/dL (Negative) 10/30/18 Unknown Neg mg/dL (Negative) 10/30/18 Unknown Neg mg/dL (Negative) 10/30/18 Unknown Sm (Negative) 10/30/18 Unknown Neg (Negative) 10/30/18 Unknown Neg (Negative) 10/30/18 Unknown < 2.0 mg/dL (<2.0) 10/30/18 Unknown Ur Leukocyte Esterase Neg (Negative) 10/30/18 Unknown 9.0 /HPF (0.0-6.0) H 10/30/18 Unknown 39.0 /HPF (0.0-6.0) 10/30/18 Unknown Few /HPF 10/30/18 Unknown 456 Mosm/kg 10/30/18 00:20 306.8 mg/dL (0.1-20.0) H 10/30/18 10:42 45 mmol/L 10/30/18 10:42 Fraction Sodium Excret Not Reportable 10/30/18 10:42 Hepatitis A IgM Ab Non-reactive (NonReactive) 10/30/18 10:55 Hep Bs Antigen Non-reactive (Negative) 10/30/18 10:55 Hep B Core IgM Ab Non-reactive (NonReactive) 10/30/18 10:55 Non-reactive (NonReactive) 10/30/18 10:55 Active Medications - Current Medications Current Medications: Generic Name Dose Route Start Last Admin Trade Name Freq PRN Reason Stop Dose Admin Acetaminophen 650 mg 10/30/18 00:04 Tylenol PO Q4H PRN Pain MILD(1-3)/Fever >100.5/ALVAREZ Enoxaparin Sodium 30 mg 10/30/18 10:00 10/30/18 10:25 Lovenox SUB-Q 30 mg QDAY EZ Administration Sodium Bicarbonate 75 meq/ 1,075 mls @ 125 mls/hr 10/30/18 11:00 Sodium Chloride IV 10/30/18 19:35 DIRECT ONE Metoclopramide HCl 5 mg 10/30/18 00:10 10/30/18 04:09 Reglan IV 5 mg Q6H PRN Administration Nausea And Vomiting Ondansetron HCl 4 mg 10/30/18 00:04 Zofran IV Q4H PRN Nausea And Vomiting Sodium Chloride 10 ml 10/30/18 10:00 10/30/18 10:26 Sodium Chloride Flush Syringe 10 Ml IV 10 ml BID EZ Administration Sodium Chloride 10 ml 10/30/18 00:04 Sodium Chloride Flush Syringe 10 Ml IV PRN PRN LINE FLUSH
[2018-10-30] MEDS: ULTRAM PO PRN (22:08)
[2018-10-31] MEDS ORDERED: MORPHINE IV ONE (00:16)
[2018-10-31] MEDS: ULTRAM PO PRN (02:27)
[2018-10-31] MEDS ORDERED: PERCOCET 5/325 PO PRN (03:12)
[2018-10-31 09:40] LABS: BUN/Creatinine Ratio 13; Blood Urea Nitrogen 17 mg/dL (9-20); Calcium 8.1 mg/dL (8.4-10.2); Hemolysis Index 5
--- NOTE | 2018-10-31 10:42 | Ultrasound Report ---
ULTRASOUND RENAL INDICATION: FELICE. COMPARISON: No relevant prior imaging study available. FINDINGS: RIGHT KIDNEY: Size: 10.4 cm. Echogenicity: Moderately echogenic. Cortical thickness: Normal. Hydronephrosis: None. Cyst or mass: None. Stones: None. LEFT KIDNEY: Size: 4.4 cm. Echogenicity: Moderately echogenic. Cortical thickness: Normal. Hydronephrosis: None. Cyst or mass: None. Stones: None. Urinary Bladder: No significant abnormality. Free Fluid: None. Additional Findings: None. IMPRESSION 1. Echogenic kidneys characteristic for medical renal disease. No hydronephrosis.. Signer Name: Omega Madera MD Signed: 10/31/2018 10:38 AM Workstation Name: [id number]
[2018-10-31] MEDS: LOVENOX SUB-Q SCH ×2 (10:43)
[2018-10-31] MEDS: SODIUM CHLORIDE FLUSH SYRINGE 10 ML IV SCH (10:44)
--- NOTE | 2018-10-31 11:29 | Progress Note ---
Assessment and Plan Assessment and plan: --Acute kidney injury; secondary to vasomotor nephropathy Gen. hydration, monitor renal function, avoid nephrotoxins Nephrology is following --Metabolic acidosis; due to acute kidney injury Continue IV hydration, mild improvement, closely monitor --Intractable nausea vomiting and diarrhea; supportive cares Stool analysis, rule out C. difficile, contact isolation if needed --History of HIV; noncompliance with medications ID evaluation if needed, Patient advised to follow private ID or health Department for HIV needs upon discharge --Soft recent spider bite; supportive care with Benadryl and steroids if needed --DVT prophylaxis; Lovenox renal dose Monitor closely and adjust management as needed Nephrology evaluation and recommendation as noted and appreciated Plan of care reviewed with the patient and his nurse Hospitalist Physical - Constitutional Vitals: Temp Pulse Resp BP Pulse Ox 98.6 F 79 18 136/76 98 10/31/18 08:18 10/31/18 08:18 10/31/18 08:18 10/31/18 08:18 10/31/18 08:18 General appearance: Present: no acute distress, well-nourished, obese Results - Labs CBC & Chem 7: 10/30/18 05:23 10/31/18 08:59 Labs: Laboratory Last Values WBC 9.2 K/mm3 (4.5-11.0) 10/30/18 05:23 RBC 4.69 M/mm3 (3.65-5.03) 10/30/18 05:23 Hgb 13.3 gm/dl (11.8-15.2) 10/30/18 05:23 Hct 39.2 % (35.5-45.6) 10/30/18 05:23 MCV 84 fl (84-94) 10/30/18 05:23 MCH 28 pg (28-32) 10/30/18 05:23 MCHC 34 % (32-34) 10/30/18 05:23 RDW 13.8 % (13.2-15.2) 10/30/18 05:23 Plt Count 91 K/mm3 (140-440) L 10/30/18 05:23 Lymph % (Auto) 8.9 % (13.4-35.0) L 10/30/18 05:23 [place] % (Auto) 11.7 % (0.0-7.3) H 10/30/18 05:23 Eos % (Auto) 0.7 % (0.0-4.3) 10/30/18 05:23 Baso % (Auto) 0.2 % (0.0-1.8) 10/30/18 05:23 Lymph # 0.8 K/mm3 (1.2-5.4) L 10/30/18 05:23 [place] # 1.1 K/mm3 (0.0-0.8) H 10/30/18 05:23 Eos # 0.1 K/mm3 (0.0-0.4) 10/30/18 05:23 Baso # 0.0 K/mm3 (0.0-0.1) 10/30/18 05:23 Seg Neutrophils % 78.5 % (40.0-70.0) H 10/30/18 05:23 Seg Neutrophils # 7.2 K/mm3 (1.8-7.7) 10/30/18 05:23 Sodium 138 mmol/L (137-145) 10/31/18 08:59 Potassium 3.8 mmol/L (3.6-5.0) 10/31/18 08:59 Chloride 106.1 mmol/L (98-107) 10/31/18 08:59 Carbon Dioxide 20 mmol/L (22-30) L 10/31/18 08:59 16 mmol/L 10/31/18 08:59 BUN 17 mg/dL (9-20) 10/31/18 08:59 1.3 mg/dL (0.8-1.5) D 10/31/18 08:59 Estimated GFR > 60 ml/min 10/31/18 08:59 13 % 10/31/18 08:59 Glucose 88 mg/dL (75-100) 10/31/18 08:59 Lactic Acid 1.30 mmol/L (0.7-2.0) 10/29/18 23:39 Calcium 8.1 mg/dL (8.4-10.2) L 10/31/18 08:59 0.80 mg/dL (0.1-1.2) 10/29/18 20:45 AST 67 units/L (5-40) H 10/29/18 20:45 ALT 56 units/L (7-56) 10/29/18 20:45 33 units/L (35-129) L 10/29/18 20:45 993 units/L (55-170) H 10/30/18 10:55 7.2 g/dL (6.3-8.2) 10/29/18 20:45 3.6 g/dL (3.9-5) L 10/29/18 20:45 1.0 % 10/29/18 20:45 Yellow (Yellow) 10/30/18 Unknown Clear (Clear) 10/30/18 Unknown 5.0 (5.0-7.0) 10/30/18 Unknown Ur Specific [place] 1.015 (1.003-1.030) 10/30/18 Unknown <15 mg/dl mg/dL (Negative) 10/30/18 Unknown Neg mg/dL (Negative) 10/30/18 Unknown Neg mg/dL (Negative) 10/30/18 Unknown Sm (Negative) 10/30/18 Unknown Neg (Negative) 10/30/18 Unknown Neg (Negative) 10/30/18 Unknown < 2.0 mg/dL (<2.0) 10/30/18 Unknown Ur Leukocyte Esterase Neg (Negative) 10/30/18 Unknown 9.0 /HPF (0.0-6.0) H 10/30/18 Unknown 39.0 /HPF (0.0-6.0) 10/30/18 Unknown Few /HPF 10/30/18 Unknown None seen (None Seen) 10/30/18 10:42 456 Mosm/kg 10/30/18 00:20 306.8 mg/dL (0.1-20.0) H 10/30/18 10:42 45 mmol/L 10/30/18 10:42 Fraction Sodium Excret Not Reportable 10/30/18 10:42 C. difficile Tox (PCR) Negative (Negative) 10/30/18 00:07 C. difficile Toxin A&B Cancelled 10/30/18 00:07 Hepatitis A IgM Ab Non-reactive (NonReactive) 10/30/18 10:55 Hep Bs Antigen Non-reactive (Negative) 10/30/18 10:55 Hep B Core IgM Ab Non-reactive (NonReactive) 10/30/18 10:55 Non-reactive (NonReactive) 10/30/18 10:55 Active Medications - Current Medications Current Medications: Generic Name Dose Route Start Last Admin Trade Name Freq PRN Reason Stop Dose Admin Acetaminophen 650 mg 10/30/18 00:04 10/30/18 16:31 Tylenol PO 650 mg Q4H PRN Administration Pain MILD(1-3)/Fever >100.5/ALVAREZ Enoxaparin Sodium 30 mg 10/30/18 10:00 10/31/18 10:43 Lovenox SUB-Q 30 mg QDAY EZ Administration Metoclopramide HCl 5 mg 10/30/18 00:10 10/30/18 12:44 Reglan IV 5 mg Q6H PRN Administration Nausea And Vomiting Ondansetron HCl 4 mg 10/30/18 00:04 10/31/18 02:40 Zofran IV 4 mg Q4H PRN Administration Nausea And Vomiting Oxycodone/Acetaminophen 1 tab 10/31/18 03:12 Percocet 5/325 PO Q6H PRN Pain, Moderate (4-6) Sodium Chloride 10 ml 10/30/18 10:00 10/31/18 10:44 Sodium Chloride Flush Syringe 10 Ml IV 10 ml BID EZ Administration Sodium Chloride 10 ml 10/30/18 00:04 Sodium Chloride Flush Syringe 10 Ml IV PRN PRN LINE FLUSH
--- NOTE | 2018-10-31 11:53 | Progress Note ---
Assessment and Plan Impression * Acute kidney injury * HIV disease * Nausea vomiting and diarrhea * Recent spider bite * Metabolic acidosis Recommendations * Renal function is much improved. Fraction excretion of sodium is 0.36%. * He most likely had a prerenal component. Renal function seems to be back to baseline at IV hydration . * History of creatinine was 1.3 in September 2018 * Acidosis has also improved with bicarbonate administration * His urine does show some microhematuria as well as some pyuria. * Follow up results of vasculitis workup. Hepatitis B and C both are negative * CT scan did not show any abnormality in his kidneys * Renal ultrasound results are pending * Avoid nephrotoxins * Discharge patient home from renal standpoint. However he will need outpatient follow-up. Patient advised Subjective Date of service: 10/31/18 Interval history: Patient is comfortable. Feels much better today. Denies any shortness of breath. Objective - Vital Signs Vital signs: Vital Signs - 12hr 10/30/18 10/31/18 10/31/18 23:59 00:28 00:58 Temperature 98.1 F Pulse Rate 82 Respiratory 20 17 17 Rate Blood Pressure 128/75 O2 Sat by Pulse 99 Oximetry 10/31/18 10/31/18 10/31/18 02:27 03:27 08:18 Temperature 98.6 F Pulse Rate 79 Respiratory 17 18 18 Rate Blood Pressure 136/76 O2 Sat by Pulse 98 Oximetry 10/31/18 10:00 Temperature Pulse Rate Respiratory 20 Rate Blood Pressure O2 Sat by Pulse Oximetry - General Appearance General appearance: well-developed, well-nourished, appears stated age EENT: PERRL, mucous membranes moist Neck: no JVD, no thyromegaly, no carotid bruit, supple Respiratory: Present: Clear to Ascultation Cardiology: regular, normal heart rate, S1S2, no murmurs Gastrointestinal: normal, normoactive bowel sounds Integumentary: no rash, other (no edema) - Lab 10/30/18 05:23 10/31/18 08:59 Most recent lab results Calcium 8.1 mg/dL (8.4-10.2) L 10/31/18 08:59 306.8 mg/dL (0.1-20.0) H 10/30/18 10:42 45 mmol/L 10/30/18 10:42 Medications & Allergies - Medications Allergies/Adverse Reactions: Allergies No Known Allergies Allergy (Verified 10/17/18 18:39) Home Medications: Home Medications Medication Instructions Recorded Confirmed Last Taken Type methOCARBAMOL [Robaxin TAB] 500 mg PO Q6H PRN #15 tablet 10/31/17 Unknown Rx Ciprofloxacin HCl [Ciprofloxacin 500 mg PO BID 3 Days #6 tablet 04/27/18 Unknown Rx TAB] Promethazine [Phenergan] 25 mg PO Q6HR PRN #20 tab 04/27/18 Unknown Rx Ibuprofen [Motrin 800 MG tab] 800 mg PO Q8HR PRN #20 tablet 10/02/18 Unknown Rx cephALEXin [Keflex] 500 mg PO Q12HR 10 Days #20 cap 10/02/18 Unknown Rx Acetaminophen [Acetaminophen TAB] 1,000 mg PO Q6HR PRN #30 tablet 10/18/18 Un known Rx Metoclopramide [Reglan] 10 mg PO Q6H PRN #30 tablet 10/18/18 Unknown Rx diphenhydrAMINE [Benadryl CAP] 25 mg PO Q6HR PRN #30 capsule 10/18/18 Unknown Rx Active Medications: Generic Name Dose Route Start Last Admin Trade Name Freq PRN Reason Stop Dose Admin Acetaminophen 650 mg 10/30/18 00:04 10/30/18 16:31 Tylenol PO 650 mg Q4H PRN Administration Pain MILD(1-3)/Fever >100.5/ALVAREZ Enoxaparin Sodium 30 mg 10/30/18 10:00 10/31/18 10:43 Lovenox SUB-Q 30 mg QDAY EZ Administration Metoclopramide HCl 5 mg 10/30/18 00:10 10/30/18 12:44 Reglan IV 5 mg Q6H PRN Administration Nausea And Vomiting Ondansetron HCl 4 mg 10/30/18 00:04 10/31/18 02:40 Zofran IV 4 mg Q4H PRN Administration Nausea And Vomiting Oxycodone/Acetaminophen 1 tab 10/31/18 03:12 Percocet 5/325 PO Q6H PRN Pain, Moderate (4-6) Sodium Chloride 10 ml 10/30/18 10:00 10/31/18 10:44 Sodium Chloride Flush Syringe 10 Ml IV 10 ml BID EZ Administration Sodium Chloride 10 ml 10/30/18 00:04 Sodium Chloride Flush Syringe 10 Ml IV PRN PRN LINE FLUSH
--- NOTE | 2018-10-31 12:13 | Discharge Summary ---
Providers - Providers Date of Admission: 10/29/18 23:47 Date of discharge: 10/31/18 Attending physician: WILD LIVINGSTON 10/30/18 00:04 Consult to Physician [CONS] Routine Comment: Consulting Provider: ESTEPHANIA COOPER Physician Instructions: Reason For Exam: arf [facility] Hospital[facility] Condition: Stable Hospital course: --Acute kidney injury; secondary to vasomotor nephropathy Gen. hydration, monitor renal function, avoid nephrotoxins Nephrology is following --Metabolic acidosis; due to acute kidney injury Continue IV hydration, mild improvement, closely monitor --Intractable nausea vomiting and diarrhea; supportive cares Stool analysis, rule out C. difficile, contact isolation if needed --History of HIV; noncompliance with medications ID evaluation if needed, Patient advised to follow private ID or health Department for HIV needs upon discharge --Soft recent spider bite; supportive care with Benadryl and steroids if needed Disposition: DC-01 TO HOME OR SELFCARE Core Measure Documentation - Palliative Care Palliative Care/ Comfort Measures: Not Applicable - Core Measures Any of the following diagnoses?: none Exam - Constitutional Vitals: Temp Pulse Resp BP Pulse Ox 98.6 F 79 20 136/76 98 10/31/18 08:18 10/31/18 08:18 10/31/18 10:00 10/31/18 08:18 10/31/18 08:18 General appearance: Present: no acute distress, well-nourished - EENT Eyes: Present: PERRL, EOM intact - Neck Neck: Present: supple, normal ROM - Respiratory Respiratory effort: normal Respiratory: bilateral: diminished, negative: rales, rhonchi, wheezing - Cardiovascular Rhythm: regular Heart Sounds: Present: S1 & S2 - Extremities Extremities: no ischemia, No edema - Abdominal General gastrointestinal: Present: soft, non-tender, non-distended, normal bowel sounds - Integumentary Integumentary: Present: clear, warm - Musculoskeletal Musculoskeletal: strength equal bilaterally - Psychiatric Psychiatric: appropriate mood/affect, cooperative - Neurologic Neurologic: CNII-XII intact, moves all extremities Plan Activity: no restrictions Diet: regular Additional Instructions: Patient is advised to see ID [infectious diseases DrFaheem] or health Department. Further management of HIV. Plenty of oral fluids. No new prescritions [facility]-5 Days KATHRINE DALY MD [Staff Physician] - 7 Days CAT RODRIGES MD [Staff Physician] - 7 Days
[2018-10-31 13:23] VITALS: BP 157/91
== END 2018-10-31 14:36 | disposition home or self-care (01) | DRG 683 ==
LOC: ED 20:09 → 3A 23:47
PROVIDERS: ADMIT Internal Medicine; ATTEND Internal Medicine
DX: N17.0 Acute kidney failure with tubular necrosis (principal); E87.1 Hypo-osmolality and hyponatremia; E87.2 Acidosis; B20 Human immunodeficiency virus [HIV] disease; E86.0 Dehydration; Z82.49 Family history of ischemic heart disease and other diseases of the circulatory system; D69.6 Thrombocytopenia, unspecified; D72.829 Elevated white blood cell count, unspecified; R19.7 Diarrhea, unspecified; Z91.19 Patient's noncompliance with other medical treatment and regimen
CPT/HCPCS: 36415; 71045; 74176; 76770; 80048; 80053; 80074; 81001; 82140; 82550; 82565; 82570; 83935; 84165; 84295; 84300; 85007; 85025; 86021; 86038; 86160; 86225; 87040; 87045; 87086; 87116; 87493; 89050; 96361; 96365; 96375; G0378; J1650; J2270; J2405; J2543; J2765; J7030

== ENCOUNTER 2019-01-06 11:17 | Emergency (ER) | payer SELFPAY ==
[2019-01-06 11:33] VITALS: BP 148/99
--- NOTE | 2019-01-06 11:33 | Event Note ---
ED Screening Note Date of service: 01/06/19 Time: 11:29 ED Screening Note: 33 y/o male comes in for left middle finger injury times 1 week and chest pain times 1 week. PMH none. meds none. No chest pain now. This initial assessment/diagnostic orders/clinical plan/treatment(s) is/are subject to change based on patients health status, clinical progression and re- assessment by fellow clinical providers in the ED. Further treatment and workup at subsequent clinical providers discretion. Patient/guardian urged not to elope from the ED as their condition may be serious if not clinically assessed and managed. Initial orders include:
--- NOTE | 2019-01-06 12:19 | XRay Report ---
LEFT FINGERS, 3 VIEWS INDICATION: stammed third finger in door.. COMPARISON: None. IMPRESSION: There is moderate soft tissue swelling of the distal third digit. No acute osseous abno rmality or joint pathology is detected. Signer Name: Willis Henriquez Jr, MD Signed: 01/06/2019 12:15 PM Workstation Name: [id number]
--- NOTE | 2019-01-06 12:36 | Emergency Department Report ---
Upper Extremity - HPI Chief Complaint: Extremity Injury, Upper Stated Complaint: SLAMMED FINGER/CHEST PAIN Time Seen by Provider: 01/06/19 11:28 Upper Extremity: Left Middle Finger Occurred When: >5 Days Mechanism: Crush (crushed finger between a house door and the threshold) Symptoms: Yes Swelling, Yes Bruising/Ecchymosis, No Pain with Movement, No Deformity, No Limited Range of Movement, No Numbness, No Weakness, No Laceration or Abrasion Other History: Mr. Flynn is a 33-year-old healthy male without significant past medical history who presents with pain to left middle finger with swelling and bruising under the finger.. One week ago he slammed his finger in a house door. He mentioned chest pain to the treatment provider fine. However he denies any chest pain. He describes sharp intermittent chest pain mild in severity Lasts less than one second. A few episodes over the past week. No chest pain at this point. ED Review of Systems ROS: Stated complaint: SLAMMED FINGER/CHEST PAIN Other details as noted in HPI Comment: All other systems reviewed and negative Constitutional: denies: fever, malaise Respiratory: denies: cough, shortness of breath Cardiovascular: chest pain ED Past Medical Hx - Past Medical History Previous Medical History?: No - Surgical History Past Surgical History?: No - Social History Smoking Status: Never Smoker Substance Use Type: Alcohol - Medications Home Medications: Home Medications Medication Instructions Recorded Confirmed Last Taken Type Promethazine [Phenergan] 25 mg PO Q6HR PRN #20 tab 04/27/18 Unknown Rx Ibuprofen [Motrin 800 MG tab] 800 mg PO Q8HR PRN #20 tablet 10/02/18 Unknown Rx Acetaminophen [Acetaminophen TAB] 1,000 mg PO Q6HR PRN #30 tablet 10/18/18 Unknown Rx diphenhydrAMINE [Benadryl CAP] 25 mg PO Q6HR PRN #30 capsule 10/18/18 Unknown Rx Upper Extremity Exam - Exam General: Vital signs noted. No distress. Alert and acting appropriately. General: Well-appearing, no acute distress HEENT: Normocephalic atraumatic anicteric sclera Nose: no rhinorrhea Oropharynx: Clear mucous membranes no lesions Neck: supple, no meningismus Chest: Clear to auscultation bilaterally no rales rhonchi no wheezes Cardiac: Regular rate and rhythm no murmurs no rubs no gallops Abdomen: Soft nontender nondistended positive bowel sounds no guarding Neuro: Moves all extremities -4, no gross deficits Psychiatric: Alert and oriented -4 normal affect normal judgment normal insight Head and Torso: No HEENT Abnormality, No Neck Tenderness, No Chest/Lungs Abnormality, No Abdominal Tenderness, No Back Tenderness Shoulder Exam: Yes Normal Range of Motion in Shoulder, No Shoulder Tenderness, No Clavicle Tenderness, No Shoulder Deformity, No AC Joint Tenderness Arm Exam: No Arm/Humerus Tenderness, No Arm Deformity Elbow: No Elbow Tenderness, No Normal Range of Motion in Elbow, No Elbow Deformity Forearm: No Forearm Tenderness, No Forearm Deformity, No Pain with Pronation, No Pain with Supination Wrist: Yes Normal ROM in Wrist, No Wrist Tenderness, No Wrist Deformity, No Snuffbox Tenderness, No Pain with Axial Thumb Compression Hand: Yes Hand Tenderness (distal left middle finger swelling with subungual hematoma), Yes Normal ROM in Digit(s), No Hand Deformity, No Digit Tenderness, No Digit(s) Deformity, No Tendon Dysfunction CMS Exam: No Broken Skin, No Normal Distal Pulses, No Normal Capillary Refill, No Normal Distal Sensation ED Course Vital Signs 01/06/19 01/06/19 11:28 11:33 Temperature 97.7 F Pulse Rate 65 61 Respiratory 18 Rate Blood Pressure 154/100 Blood Pressure 148/99 [Right] O2 Sat by Pulse 100 Oximetry ED Medical Decision Making - Medical Decision Making 1. Left middle finger crush injury with subungual hematoma: Given supportive care instructions 2. Chest pain: Suspect ectopy such as PVCs. No indication of PE, pericarditis, ACS, arrhythmia given outpatient referral Critical care attestation.: If time is entered above; I have spent that time in minutes in the direct care of this critically ill patient, excluding procedure time. ED Disposition Clinical Impression: Crushing injury of finger of left hand, Hematoma, subungual, finger, left, Chest pain Disposition: TO HOME OR SELFCARE Is pt being admited?: No Does the pt Need Aspirin: No Condition: Stable Instructions: Chest Pain (ED), Subungual Hematoma (ED) Referrals: PRIMARY CARE, [Primary Care Provider] - 3-5 Days [facility] [Outside] - 3-5 Days Forms: Work/School Release Form(ED)
== END 2019-01-06 12:45 | disposition home or self-care (01) ==
LOC: ED 11:17
DX: S60.132A Contusion of left middle finger with damage to nail, initial encounter (principal); R07.89 Other chest pain; Z79.899 Other long term (current) drug therapy; W23.0XXA Caught, crushed, jammed, or pinched between moving objects, initial encounter; Y93.89 Activity, other specified; Y92.89 Other specified places as the place of occurrence of the external cause; Y99.8 Other external cause status